=== PATIENT | female | born 2000 | race Caucasian/White ===

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

== ENCOUNTER 2023-05-15 02:31 | Emergency (ER) | payer OTHER, SELFPAY ==
--- OUTSIDE RECORDS SUMMARY | 2023-05-15 02:44 | XMS REPORT | Continuity of Care Document ---
Author Name Unknown Address [address] [facility] [place] [address] [facility] Address [address] 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 Role Phone (Brigido), [facility] Primary Care Phys ician PRINCE ASHLEY Attending Clinician Unavaila CRIS Costa Attending Clinician Unavailable [id number] Attending Clinician Unavailable DARLYN BARKSDALE Attending Clinician Unavailable Emily Ashraf Attending Clinician [phone] ALF BURNETTE Attending Clinician Unavaila NGUYEN Motley Attending Clinician Unavailable [id number] Attending Clinician Unavailable Prince Ashley MD Attending Clinician + [phone] TIA PHELAN Attending Clinician Unavaila Tia Cuevas Attending Clinician [phone] MICKIE AGUIRRE Attending Clinician UnavailSABA Vega Attending Clinician Unavaila Saba Latham Attending Clinician + [phone] Doctor Unassigned, [place] Attending Clinician U david Szymanski MD, [place] Attending Clinician [phone] Lucius DANGELO, Cyndee Attending Clinician Unavailable UNKNOWN, ATTENDING Attending Clinician Unavailab le Only, Web Test Attending Clinician Unavailable Unknown, Attending Attending Clinician Unavailab le 1, [facility] Attending Clinician Unavailable Diogenes Morgan MD Attending Clinician Payers Payer Name Policy Type Policy Number Effective Date Expirati on Date Source [employer] BENEFITS ANDALUSIA 2 [id number] 2022 00:00:00 MEDICAID PENDING PENDING 2021 00:00:00 Problems Condition Name Condition Details Condition Category Status Onset Date Resolution Date Last Treatment Date Treating Clinician Comments Source Acne Acne Disease Active 10-03 00:00: 00 [facility] No known active problems No known active problems Disease Miroslava Espinosa Allergies, Adverse Reactions, Alerts Allergy Name Allergy Type Status Severity Reaction(s) Onset Date Inactive Date Treating Clinician Comments Source NO KNOWN ALLERGIE S Drug Class Active [facility] Social History Social Habit Start Date Stop Date Quantity Comments Source Gender identity Mallory Espinosa - External Sexual orientation K femi Espinosa - External History of Social function 2023-03-02 00:00:00 2023-03-02 00:00:00 Miroslava Espinosa - External Alcohol intake 2023-03-02 00:00:00 2023-03-02 00:00:00 Ex-drinker (finding) Miroslava Espinosa - External Tobacco use and exposure 2014-10-03 00:00:00 2014-10-03 00:00:00 Smokeless tobacco non-user [facility] Sex Assigned At 2002 00:00:00 2000 00:00:00 Miroslava Espinosa - External Smoking Status Start Date Stop Date Source Never smoked tobacco Miroslava Espinosa - External Medications Ordered Medication Name Filled Medication Name Start Date Stop Date Current Medication? Ordering Clinician Indication Dosage Frequency Signature (SIG) Comments Components Source Valacyclovi r HCl (Valtrex) 1 g oral Tablet 03-02 00:00: 00 Yes [id number] 1000mg Take 1 tablet (1,000 mg total) by mouth 2 times daily. Miroslava king Pseudoeph-B romphen-DM 30-2-10 MG/5ML oral Syrup 06-03 00:00: 00 Yes [id number] 10mL Q.25D Take 10 mL by mouth 4 times daily as needed Miroslava king Dextrometho rphan-guaiF ENesin (Mucinex DM Maximum Strength) 60-1200 MG oral Tablet 12 Hour Sustained Release 06-03 00:00: 00 Yes [id number] 1{tbl} Q.5D Take 1 tablet by mouth 2 times daily as needed Miroslava king Pseudoeph-B romphen-DM 30-2-10 MG/5ML oral Syrup 06-03 00:00: 00 01-13 00:00 :00 No [id number] 10mL Q.25D Take 10 mL by mouth 4 times daily as needed Miroslava king Dextrometho rphan-guaiF ENesin (Mucinex DM Maximum Strength) 60-1200 MG oral Tablet 12 Hour Sustained Release 06-03 00:00: 00 01-13 00:00 :00 No [id number] 1{tbl} Q.5D Take 1 tablet by mouth 2 times daily as needed Miroslava king Metronidazo le (Flagyl) 500 MG oral Tablet 06-25 00:00: 00 Yes [id number] 500mg Take 1 tablet (500 mg total) by mouth in the morning and 1 tablet (500 mg total) in the evening. Miroslava king Fluconazole (Diflucan) 150 MG oral Tablet 06-25 00:00: 00 Yes [id number] 150mg Take 1 tablet (150 mg total) by mouth every 72 hours Miroslava king Metronidazo le (Flagyl) 500 MG oral Tablet 06-25 00:00: 00 01-13 00:00 :00 No [id number] 500mg Take 1 tablet (500 mg total) by mouth in the morning and 1 tablet (500 mg total) in the evening. Miroslava king Fluconazole (Diflucan) 150 MG oral Tablet 13 00:00: 00 01-13 00:00 :00 No [id number] 150mg Take 1 tablet (150 mg total) by mouth every 72 hours Miroslava king Nitrofurant oin Monohyd Macro (Macrobid) 100 MG oral Capsule 06-23 00:00: 00 Yes [id number] 100mg Take 1 capsule (100 mg total) by mouth in the morning and 1 capsule (100 mg total) in the evening. Miroslava Espinosa Nitrofurant oin Monohyd Macro (Macrobid) 100 MG oral Capsule 06-23 00:00: 00 Yes [id number] 100mg Take 1 capsule (100 mg total) by mouth in the morning and 1 capsule (100 mg total) in the evening. Miroslava king Nitrofurant oin Monohyd Macro (Macrobid) 100 MG oral Capsule 06-23 00:00: 00 01-13 00:00 :00 No [id number] 100mg Take 1 capsule (100 mg total) by mouth in the morning and 1 capsule (100 mg total) in the evening. Miroslava king No known medications 08-05 10:30: 13 No Univers it[facility] No known medications No Un bonnie ity [facility] No known medications No Un bonnie ity [facility] No known medications No Un bonnie ity [facility] No known medications No Un bonnie ity [facility] No known medications No Un bonnie ity [facility] No known medications No Un bonnie ity [facility] No known medications No Un bonnie ity [facility] No known medications No Un bonnie ity [facility] Immunizations Ordered Immunization Name Filled Immunization Name Date Status Comments Source Meningococcal B, OMV 2020-08-05 00:00:00 Completed [facility] Meningococcal B, OMV 2020-08-05 00:00:00 Completed [facility] Meningococcal B, OMV 2020-08-05 00:00:00 Completed [facility] Meningococcal B, OMV 2020-08-05 00:00:00 Completed [facility] Meningococcal Polysaccharide (groups A, C, Y and W-135) conjugate vaccine (MCV4P) 2019-01-03 00:00:00 Completed [facility] Meningococcal B, OMV 2019-01-03 00:00:00 Completed [facility] Meningococcal Polysaccharide (groups A, C, Y and W-135) conjugate vaccine (MCV4P) 2019-01-03 00:00:00 Completed [facility] Meningococcal B, OMV 2019-01-03 00:00:00 Completed [facility] Meningococcal Polysaccharide (groups A, C, Y and W-135) conjugate vaccine (MCV4P) 2019-01-03 00:00:00 Completed [facility] Meningococcal B, OMV 2019-01-03 00:00:00 Completed [facility] Meningococcal Polysaccharide (groups A, C, Y and W-135) conjugate vaccine (MCV4P) 2019-01-03 00:00:00 Completed [facility] Meningococcal B, OMV 2019-01-03 00:00:00 Completed [facility] Meningococcal Polysaccharide (groups A, C, Y and W-135) conjugate vaccine (MCV4P) 2019-01-03 00:00:00 Completed [facility] Meningococcal B, OMV 2019-01-03 00:00:00 Completed [facility] Meningococcal Polysaccharide (groups A, C, Y and W-135) conjugate vaccine (MCV4P) 2019-01-03 00:00:00 Completed [facility] Meningococcal B, OMV 2019-01-03 00:00:00 Completed [facility] Meningococcal Polysaccharide (groups A, C, Y and W-135) conjugate vaccine (MCV4P) 2019-01-03 00:00:00 Completed [facility] Meningococcal B, OMV 2019-01-03 00:00:00 Completed [facility] Meningococcal Polysaccharide (groups A, C, Y and W-135) conjugate vaccine (MCV4P) 2019-01-03 00:00:00 Completed [facility] Meningococcal B, OMV 2019-01-03 00:00:00 Completed [facility] Meningococcal Polysaccharide (groups A, C, Y and W-135) conjugate vaccine (MCV4P) 2019-01-03 00:00:00 Completed [facility] Meningococcal B, OMV 2019-01-03 00:00:00 Completed [facility] Meningococcal Polysaccharide (groups A, C, Y and W-135) conjugate vaccine (MCV4P) 2019-01-03 00:00:00 Completed [facility] Meningococcal B, OMV 2019-01-03 00:00:00 Completed [facility] Meningococcal Polysaccharide (groups A, C, Y and W-135) conjugate vaccine (MCV4P) 2014-10-03 00:00:00 Completed [facility] TDAP 2014-10-03 00:00:00 Completed [facility] Meningococcal Polysaccharide (groups A, C, Y and W-135) conjugate vaccine (MCV4P) 2014-10-03 00:00:00 Completed [facility] TDAP 2014-10-03 00:00:00 Completed [facility] Meningococcal Polysaccharide (groups A, C, Y and W-135) conjugate vaccine (MCV4P) 2014-10-03 00:00:00 Completed [facility] TDAP 2014-10-03 00:00:00 Completed [facility] Meningococcal Polysaccharide (groups A, C, Y and W-135) conjugate vaccine (MCV4P) 2014-10-03 00:00:00 Completed [facility] TDAP 2014-10-03 00:00:00 Completed [facility] Meningococcal Polysaccharide (groups A, C, Y and W-135) conjugate vaccine (MCV4P) 2014-10-03 00:00:00 Completed [facility] TDAP 2014-10-03 00:00:00 Completed [facility] Meningococcal Polysaccharide (groups A, C, Y and W-135) conjugate vaccine (MCV4P) 2014-10-03 00:00:00 Completed [facility] TDAP 2014-10-03 00:00:00 Completed [facility] Meningococcal Polysaccharide (groups A, C, Y and W-135) conjugate vaccine (MCV4P) 2014-10-03 00:00:00 Completed [facility] TDAP 2014-10-03 00:00:00 Completed [facility] Meningococcal Polysaccharide (groups A, C, Y and W-135) conjugate vaccine (MCV4P) 2014-10-03 00:00:00 Completed [facility] TDAP 2014-10-03 00:00:00 Completed [facility] Meningococcal Polysaccharide (groups A, C, Y and W-135) conjugate vaccine (MCV4P) 2014-10-03 00:00:00 Completed [facility] TDAP 2014-10-03 00:00:00 Completed [facility] Meningococcal Polysaccharide (groups A, C, Y and W-135) conjugate vaccine (MCV4P) 2014-10-03 00:00:00 Completed [facility] TDAP 2014-10-03 00:00:00 Completed [facility] Covid-19 Vaccine (Pfizer), Mrna-lnp, Eben Protein, Pf, 30mcg/0.3ml,IM Unknown Completed Miroslava Calixol d - External Influenza Virus Vaccine, Split, up to age 3 Unknown Completed Miroslava Louiseold - External Influenza Virus Vaccine, Split, up to age 3 Unknown [facility] Meningococcal Vaccine- Conjugate(Menactra) Unknown Completed Miroslava eybold - External Meningococcal Vaccine- Conjugate(Menactra) Unknown Completed Miroslava Tan eybold - External Bexsero (Meningococcal Group B) Unknown Completed [facility] - External Bexsero (Meningococcal Group B) Unknown Com[facility] Tdap- (Boostrix, Adacel) Unknown [facility] Cov[facility]-19 Vaccine (Pfizer), Mrna-lnp, Eben Protein, Pf, 30mcg/0.3ml,IM Unknown Completed Miroslava Calix d - External Influenza Virus Vaccine, Split, up to age 3 Unknown Completed Miroslava [facility] - External Influenza Virus Vaccine, Split, up to age 3 Unknown Com[facility] Meningococcal Vaccine- Conjugate(Menactra) Unknown Completed Miroslava S eybold - External Meningococcal Vaccine- Conjugate(Menactra) Unknown Completed Miroslava S eybold - External Bexsero (Meningococcal Group B) Unknown Completed Miroslava Seybold - External Bexsero (Meningococcal Group B) Unknown Completed Miroslava [facility] - External Tdap- (Boostrix, Adacel) Unknown [facility] Vital Signs Vital Name Observation Time Observation Value Comments S ource Systolic blood pressure 2023-03-02 15:21:00 102 mm[Hg] Miroslava Seybo ld - External Diastolic blood pressure 2023-03-02 15:21:00 56 mm[Hg] Miroslava Seybo ld - External Heart rate 2023-03-02 15:21:00 70 /min Kelse y Seybold - External Body temperature 2023-03-02 15:21:00 36.83 Mary Miroslava Seybold - External Respiratory rate 2023-03-02 15:21:00 20 /min Miroslava Seybold - External Body height 2023-03-02 15:21:00 165.1 cm Mallory ey Seybold - External Body weight 2023-03-02 15:21:00 52.164 kg Mallory ey Seybold - External BMI 2023-03-02 15:21:00 19.14 kg/m2 Mallory ey Seybold - External Systolic blood pressure 2021-06-23 18:40:00 102 mm[Hg] Miroslava Seybo ld Diastolic blood pressure 2021-06-23 18:40:00 60 mm[Hg] Miroslava Seybo ld Heart rate 2021-06-23 18:40:00 80 /min Kelse y Seybold Body temperature 2021-06-23 18:40:00 36.61 Mary Miroslava Seybold Respiratory rate 2021-06-23 18:40:00 20 /min Miroslava Seybold Body height 2021-06-23 18:40:00 162.6 cm Mallory ey Seybold Body weight 2021-06-23 18:40:00 49.079 kg Mallory ey Seybold BMI 2021-06-23 18:40:00 18.57 kg/m2 Mallory ey Seybold Systolic blood pressure 2021-03-18 22:53:00 126 mm[Hg] [facility] Diastolic blood pressure 2021-03-18 22:53:00 50 mm[Hg] [facility] Heart rate 2021-03-18 22:53:00 66 /min [facility] Body temperature 2021-03-18 22:53:00 36.61 Mary [facility] Respiratory rate 2021-03-18 22:53:00 18 /min [facility] Body weight 2021-03-18 22:53:00 47.628 kg [facility] Oxygen saturation in Arterial blood by Pulse oximetry 2021-03-18 22:53:00 99 /min [facility] Systolic blood pressure 2020-08-05 15:23:00 109 mm[Hg] [facility] Diastolic blood pressure 2020-08-05 15:23:00 67 mm[Hg] [facility] Heart rate 2020-08-05 15:23:00 79 /min [facility] Body temperature 2020-08-05 15:23:00 37.28 Mary [facility] Respiratory rate 2020-08-05 15:23:00 17 /min [facility] Body height 2020-08-05 15:23:00 163.2 cm [facility] Body weight 2020-08-05 15:23:00 47.741 kg [facility] BMI 2020-08-05 15:23:00 17.92 kg/m2 [facility] Oxygen saturation in Arterial blood by Pulse oximetry 2020-08-05 15:23:00 98 /min [facility] Procedures Procedure Date / Time Performed Performing Clinician Source URINE TEST-BACK OFFICE TEST 2021-06-23 19:23:00 Prince Ashley CONSENT/REFUSAL FOR DIAGNOSIS AND TREATMENT 2021-03-18 22:55:28 Doctor Unassigned, [place] [facility] NOTICE OF PRIVACY PRACTICES 2021-03-18 22:55:12 Doctor Unassigned, [place] [facility] MENINGOCOCCAL B VACCINE, OMV, 2 DOSE, IM 2020-08-05 15:28:49 Saba Sánchez [facility] CONSENT/REFUSAL FOR DIAGNOSIS AND TREATMENT 2020-08-05 15:15:03 Doctor Unassigned, [place] [facility] AUTHORIZATION FOR RELEASE OF PHI 2019-08-19 05:01:00 Doctor Unassigned, [place] [facility] Encounters Start Date/Time End Date/Time Encounter Type Admission Type Attending Clinicians Care Facility Care Department Encounter ID Source 2023-04-03 15:15:00 2023-04-03 15:15:00 Outpatient PRINCE ASHLEY MIROSLAVA AGUIRRE [id number] [facility] 2023-03-09 14:45:00 2023-03-09 14:45:00 Outpatient CRIS THOMAS MRIOSLAVA AGUIRRE [id number] [facility] 2023-03-02 10:05:00 2023-03-02 10:05:00 Outpatient LAB59 MIROSLAVA AGUIRRE [id number] Miros[facility]ava [facility] 2023-03-02 09:30:00 2023-03-02 09:30:00 Outpatient PRINCE ASHLEY MIROSLAVA AGUIRRE [id number] [facility] 2023-01-13 10:45:00 2023-01-13 10:45:00 Outpatient DARLYN BARKSDALE MIROSLAVA AGUIRRE [id number] Mi[facility] 2023-01-13 00:00:00 2023-01-13 00:00:00 Outpatient APOLONIA DARLYN MIROSLAVA AGUIRRE [id number] [facility] 2022-06-24 00:00:00 2022-06-24 00:00:00 Telephone [facility] [id number] [id number] [id number] [id number] [facility] 2022-06-03 14:45:00 2022-06-03 14:45:00 Outpatient ALF BURNETTE [id number] [facility] 2021-08-20 11:15:00 2021-08-20 11:15:00 Outpatient NGUYEN NIETO [id number] [facility] 2021-07-16 00:00:00 2021-07-16 00:00:00 Outpatient PRINCE ASHLEY [facility]LAVA AGUIR[facility] [id number] [facility] 2021-06-23 14:30:00 2021-06-23 14:30:00 Outpatient [id number]-[id number] MIROSLAVA AGUIRRE [id number] [facility] 2021-06-23 13:45:00 2021-06-23 14:15:00 Office Visit Prince Ashley [id number] [id number] Miroslava Espinosa 2021-03-18 16:55:00 2021-03-18 17:45:00 Emergency X TIA PHELAN [facility] ERT [id number] [facility] 2021-03-18 16:55:00 2021-03-18 17:45:00 Emergency Tia Phelan [facility] [id number] 350.1.13.10 4.2.7.2.686 [id number] [facility] 2020-09-19 10:40:00 2020-09-19 10:40:00 Outpatient R MICKIE AGUIRRE [facility] [id number] [facility] 2020-08-05 10:20:00 2020-08-05 10:47:16 Outpatient R MIGUEL SABA [facility] [id number] [facility] 2020-08-05 10:15:32 2020-08-05 10:47:16 Office Visit Sánchez Saba [facility] [id number] 350.1.13.10 4.2.7.2.686 [id number] [facility] 2020-08-05 00:00:00 2020-08-05 00:00:00 Orders Only Doctor Unassigned, [place] [facility] [id number] 350.1.13.10 4.2.7.2.686 [id number] [facility] 2020-08-03 00:00:00 2020-08-03 00:00:00 Telephone Poncho Szymanski [facility] [id number] 350.1.13.10 4.2.7.2.686 [id number] [facility] 2019-08-26 00:00:00 2019-08-26 00:00:00 Telephone Lucius [facility] [id number] 350.1.13.10 4.2.7.2.686 [id number] 2019-08-26 00:00:00 2019-08-26 00:00:00 Telephone Lucius [facility] [id number] 350.1.13.10 4.2.7.2.686 [id number] [facility] 2019-08-21 08:15:00 2019-08-21 08:15:00 Outpatient R UNKNOWN, ATTENDING [facility] [id number] [facility] 2019-08-21 07:55:52 2019-08-21 08:10:52 Laboratory Only Only, Web Test [facility] [id number] 350.1.13.10 4.2.7.2.686 [id number] 2019-08-21 07:55:52 2019-08-21 08:10:52 Laboratory Only Only, Web Test Unknown, Attending [facility] [id number] 350.1.13.10 4.2.7.2.686 [id number] [facility] 2019-08-19 00:00:00 2019-08-19 00:00:00 Orders Only Doctor Unassigned, [place] [facility] 1.2.840.114 350.1.13.10 4.2.7.2.686 [id number] [facility] 2019-08-19 00:00:00 2019-08-19 00:00:00 Orders Only Doctor Unassigned, [place] [facility] 1.2.840.114 350.1.13.10 4.2.7.2.686 [id number] 2019-08-17 08:34:09 2019-08-17 08:49:09 Senior Ssis Developer Visit 1, Adc Diogenes Rivera [facility] [id number] 350.1.13.10 4.2.7.2.686 [id number] [facility] 2019-08-17 08:34:09 2019-08-17 08:49:09 Senior Ssis Developer Visit 1, Adc Lab [facility] [id number] 350.1.13.10 4.2.7.2.686 [id number] 2019-08-17 08:15:00 2019-08-17 08:15:00 Outpatient R [facility] [id number] [facility] Results Test Description Test Time Test Comments Results Result Co mments Source COMPREHENSIVE METABOLIC [id number] 07:00:41* Test Item Value Reference Range Interpretation Comme nts GLUCOSE (test code = 2217) 74 MG/DL 70-99 BUN (test code = 2208) 16 MG/DL 6-20 CREATININE (test code = 2214) 1.00 MG/DL 0.50-1.10 eGFR (2020 CKD-EPI) (test code = 63381) 83 ML/MIN/1.73 >60 CALC BUN/CREAT (test code = 2235) 16 RATIO 6-28 SODIUM (test code = 2231) 136 MEQ/L 133-146 POTASSIUM (test code = 2228) 4.0 MEQ/L 3.5-5.4 CHLORIDE (test code = 2215) 96 MEQ/L 95-107 CARBON DIOXIDE (test code = 2206) 25 MEQ/L 19-31 CALCIUM (test code = 2209) 10.3 MG/DL 8.5-10.5 PROTEIN, TOTAL (test code = 2229) 8.0 G/DL 6.1-8.3 ALBUMIN (test code = 2201) 5.1 G/DL 3.5-5.2 CALC GLOBULIN (test code = 2240) 2.9 G/DL 2.1-3.7 CALC A/G RATIO (test code = 2234) 1.8 RATIO 1.0-2.6 BILIRUBIN, TOTAL (test code = 2207) 1.2 MG/DL See_Comment [Automated me ssage] The system which generated this result transmitted reference range: <=1.2. The reference range was not used to interpret this result as normal/abnormal. ALKALINE PHOSPHATASE (test code = 2204) 59 U/L 41-120 AST (test code = 2218) 21 U/L 9-40 ALT (test code = 2219) 16 U/L 5-40 UNLESS OTHERWISE INDICATED, ALL TESTING PERFORMED [facility] [employer] [address] [place] [id number] SPECIAL EDUCATION AIDE: IVANIA MISHRA M.D. [place] NUMBER [id number] [facility] [place]. [id number] HEMOGLOBIN [id number] 06:38:41* Test Item Value Reference Range Interpretation Comme nts HEMOGLOBIN A1c (test code = 16667) 4.8 % 4.2-5.6 CBC W/AUTO DIFF WITH [id number] 05:14:58* Test Item Value Reference Range Interpretation Comme nts WBC (test code = 1001) 9.3 K/UL 3.5-11.0 RBC (test code = 1002) 5.11 M/UL 3.80-5.40 HEMOGLOBIN (test code = 1003) 15.7 G/DL 11.5-15.5 H HEMATOCRIT (test code = 1004) 44.0 % 34.0-45.0 MCV (test code = 1005) 86.1 fL 80.0-99.0 MCH (test code = 1006) 30.7 PG 25.0-33.0 MCHC (test code = 1007) 35.7 G/DL 31.0-36.0 RDW (test code = 1038) 11.7 % 11.5-15.0 NEUTROPHILS (test code = 1008) 76.7 % LYMPHOCYTES (test code = 1010) 16.6 % MONOCYTES (test code = 1011) 5.3 % EOSINOPHILS (test code = 1012) 0.8 % BASOPHILS (test code = 1013) 0.4 % IMMATURE GRANULOCYTES (test code = 1036) 0.2 % NUCLEATED RBCS (test code = 1065) 0.0 /100 WBC'S See_Comment [Automated messa ge] The system which generated this result transmitted reference range: 0.0. The reference range was not used to interpret this result as normal/abnormal. PLATELET COUNT (test code = 1015) 281 K/UL 130-400 ABSOLUTE NEUTROPHILS (test code = 1066) 7.14 K/UL 1.50-7.50 ABSOLUTE LYMPHOCYTES (test code = 1067) 1.54 K/UL 1.00-4.00 ABSOLUTE MONOCYTES (test code = 1068) 0.49 K/UL 0.20-1.00 ABSOLUTE EOSINOPHILS (test code = 1040) 0.07 K/UL 0.00-0.50 ABSOLUTE BASOPHILS (test code = 1069) 0.04 K/UL 0.00-0.20 ABS IMMATURE GRANULOCYTES (test code = 1020) 0.02 K/UL 0.00-0.10 ABS NUCLEATED RBCS (test code = 54324) 0.02 K/UL 0.00-0.11 URINE TEST-BACK OFFICE [id number] 19:23:00* Test Item Value Reference Range Interpretation Comme nts TEST RESULT (test code = 647558) Neg Neg. - Pos. Internal Positive Control (t est code = 3223) Positive Miroslava Espinosa Notes Date/Time Note Provider Source 2023-03-02 09:18:05 [id number] T09:18:05 Chief ComplaintPatient presents withVaginal ProblemCarol [place]IDNA [place]res II [id number] [id number] [id number] for patient [id number] NoteLNNARRATIVEFormatted C-CDA narrative Jewel [id number] [facility] [id number] [id number] [facility]"
[2023-05-15] MEDS ORDERED: FAMOTIDINE 20 MG/2 ML VIAL IV ONE (03:03)
[2023-05-15] MEDS ORDERED: ONDANSETRON 4 MG/2 ML VIAL ONE (03:03)
[2023-05-15] MEDS ORDERED: NA CHLORIDE 0.9% 1,000 ML ONE ×2 (03:04→05:18)
[2023-05-15 03:42] LABS: Absolute Lymphocytes (CBC) 1.2 K/uL (0.7-4.9); Absolute Monocytes 0.3 K/uL (0.1-1.3); Absolute Neutrophil 9.5 K/uL (1.8-8.0); Basophils % 0.2 % (0-1.3); Eosinophils % 0.3 % (0-4.4); Hematocrit 42.6 % (36.0-45.0); Hemoglobin 14.9 g/dL (12.0-15.0); Lymphocytes % 10.9 % (15.3-44.8); MCH 30.4 pg (27.0-35.0); MCHC 35.1 g/dL (32.0-36.0); MCV 86.7 fL (80-100); Monocytes % 2.6 % (3.3-12.3); Platelets 255 thou/uL (152-406); RBC Red Blood Cell Count 4.91 M/uL (3.86-4.86); Red Cell Distribution Width 12.5 % (12.1-15.2)
[2023-05-15 03:50] LABS: PT Prothrombin Time 12.6 SECONDS (9.5-12.5); PTT, Activated Partial Thromb 22.5 SECONDS (24.3-36.9); Protime INR 1.15
[2023-05-15 04:15] LABS: ALT/SGPT 21 U/L (13-56); AST/SGOT 21 U/L (15-37); Albumin 4.3 g/dL (3.4-5.0); Albumin/Globulin Ratio 1.1 (1.1-1.8); Alkaline Phosphatase 54 U/L (45-117); Anion Gap 13.3 mEq/L (5.0-15.0); BUN Blood Urea Nitrogen 25 mg/dL (7-18); Bicarbonate 22 mEq/L (21-32); Bilirubin Direct 0.2 mg/dL (0-0.2); Bilirubin Indirect, Calculated 0.7 mg/dL (0.2-0.8); Bilirubin Total 0.9 mg/dL (0.2-1.0); Glomerular Filtration Rate 79 ml/min (=/>90); Glucose Level 111 mg/dL (74-106); Potassium 3.3 mEq/L (3.5-5.1); Protein, Total 8.3 g/dL (6.4-8.2); Sodium Level 136 mEq/L (136-145)
[2023-05-15 05:03] LABS: Band Neutrophils 2 % (0-1); Blood Morphology Comment NOT SEEN (NOT SEEN); Differential Total Cells Count 100; Lymphocytes 9 % (15-42); Monocytes 1 % (0-10); Platelet Estimate ADEQ; Reactive Lymphocytes 1 %; Segmented Neutrophils 86 % (40-80)
[2023-05-15] MEDS ORDERED: PROMETHAZINE INJ 25 MG/ML AMP ONE (05:18)
--- NOTE | 2023-05-15 05:29 | EDPHYS ---
Physician Documentation [facility] Name: Dede Kulkarni Age: 22 yrs Sex: Female : 2000 Arrival Date: 05/15/2023 Time: 02:31 Bed 20 Private MD: ED Physician Cliff Rebolledo HPI: 05/14 03:10 This 22 yrs old Female presents to ER via Ambulatory with complaints of Nausea/Vomiting.rn 03:10 The patient presents to the emergency department with nausea, vomiting. Onset: The rn symptoms/episode began/occurred just prior to arrival. Possible causes: Too much pain medication. The symptoms are aggravated by nothing. The symptoms are alleviated by nothing. Severity of symptoms: At their worst the symptoms were moderate in the emergency department the symptoms are unchanged. The patient has not experienced similar symptoms in the past. Patient reports took 7 Tylenol No. 3, 300-30 mg, was not an attempt to harm herself or commit suicide. Denies suicidal ideations. Took him approximately 630 to 7:30 PM last night. Went to [facility] and told her that she would be better served here so came here. Reports nausea and vomiting. No focal abdominal pain. [place] fine prior to taking the pills.. Historical: - Allergies: 02:48 No Known Allergies; rv - Home Meds: 02:48 None [Active]; rv - PMHx: 02:48 None; rv - PSHx: 02:48 None; rv - Immunization history:: Adult Immunizations up to date. - Social history:: Smoking status: unknown. - Family history:: not pertinent. - Hospitalizations: : No recent hospitalization is reported. ROS: 03:10 Constitutional: Negative for fever, chills, and weight loss, Eyes: Negative for injury, rn pain, redness, and discharge, Neck: Negative for injury, pain, and swelling, Cardiovascular: Negative for chest pain, palpitations, and edema, Respiratory: Negative for shortness of breath, cough, wheezing, and pleuritic chest pain, Abdomen/GI: Positive for nausea and vomiting Back: Negative for injury and pain, MS/Extremity: Negative for injury and deformity, Skin: Negative for injury, rash, and discoloration, Neuro: Negative for headache, weakness, numbness, tingling, and seizure, Psych: Negative for depression, anxiety, suicide ideation, homicidal ideation, and hallucinations, Exam: 03:10 Constitutional: This is a well developed, well nourished patient who is awake, alert, rn and in no acute distress. Head/Face: Normocephalic, atraumatic. Cardiovascular: Regular rate and rhythm. No pulse deficits. Respiratory: No increased work of breathing, no retractions or nasal flaring. Abdomen/GI: Soft, non-tender MS/ Extremity: Pulses equal, no cyanosis. Neuro: Awake and alert, GCS 15 Vital Signs: 02:46 BP 112 / 77; Pulse 72; Resp 17; Temp 98; Pulse Ox 100% ; Weight 52.16 kg; Height 5 ft. rv 4 in. ; 03:00 BP 92 / 52; Pulse 67; Resp 16; Pulse Ox 100% on R/A; rv 04:00 BP 93 / 46; Pulse 66; Resp 17; Pulse Ox 98% on R/A; rv 05:00 BP 103 / 59; Pulse 72; Resp 16; Pulse Ox 99% on R/A; rv 06:27 BP 103 / 58; Pulse 81; Resp 17; Temp 98; Pulse Ox 99% on R/A; rv 02:46 Body Mass Index 19.74 (52.16 kg, 162.56 cm) rv [place] Coma Score: 05:04 Eye Response: spontaneous(4). Motor Response: obeys commands(6). Verbal Response: rv oriented(5). Total: 15. 06:27 Eye Response: spontaneous(4). Motor Response: obeys commands(6). Verbal Response: rv oriented(5). Total: 15. MDM: 02:45 Patient medically screened. rn 03:58 ED course: Patient asked by multiple people and denied to everybody suicidal ideation rn or attempt. Patient states was having a bad day yesterday and took extra pain medication to calm down, not to harm herself or commit suicide.. 04:29 ED course: Acetaminophen level nontoxic.. rn 05:14 ED course: Reevaluated patient due to elevated WBC. Patient states was totally fine rn prior to taking pills. No recent illness. Repeat abdominal exam shows benign abdomen without focal tenderness. Patient feels much better, still little nauseated. Will give Phenergan and more fluids. If patient is able to tolerate p.o. will discharge home with return precautions.. 05:28 Differential diagnosis: Nonspecific abd pain, gastritis, Accidental overdose, airborne and air delivery specialist side effect. Data reviewed: vital signs, nurses notes, lab test result(s), and as a result, I will discharge patient. Counseling: I had a detailed discussion with the patient and/or guardian regarding the historical points, exam findings, and any diagnostic results supporting the discharge/admit diagnosis, lab results, the need for outpatient follow up, to return to the emergency department if symptoms worsen or persist or if there are any questions or concerns that arise at home. Special discussion: I discussed with the patient/guardian in detail that at this point there is no indication for admission to the hospital. It is understood, however, that if the symptoms persist or worsen the patient needs to return immediately for re-evaluation. ED course: Patient also states smoked marijuana prior to coming in.. 05/14 02:57 Order name: Acetaminophen; Complete Time: 04:29 rn 05/14 02:57 Order name: Basic Metabolic Panel; Complete Time: 04:29 rn 05/14 02:57 Order name: CBC with Diff; Complete Time: 05:05 rn 05/14 02:57 Order name: ETOH Level; Complete Time: 04:29 rn 05/14 02:57 Order name: Hepatic Function; Complete Time: 04:29 rn 05/14 02:57 Order name: PT-INR; Complete Time: 04:29 rn 05/14 02:57 Order name: Ptt, Activated; Complete Time: 04:29 rn 05/14 02:57 Order name: Salicylate; Complete Time: 04:29 rn 05/14 03:46 Order name: Manual Differential; Complete Time: 05:05 EDMS 05/14 02:57 Order name: EKG; Complete Time: 02:57 rn 05/14 02:57 Order name: EKG - Nurse/Tech; Complete Time: 03:18 rn 05/14 02:57 Order name: IV Saline Lock; Complete Time: 03:03 rn 05/14 02:57 Order name: Labs collected and sent; Complete Time: 03:03 rn 05/14 02:57 Order name: Suicide Screening ([place]); Complete Time: 03:03 rn 05/14 05:05 Order name: PO challenge; Complete Time: 05:27 rn Administered Medications: 03:09 Drug: NS 0.9% IV 1000 ml IV at 1000 ml once Route: IV; Rate: 1000 ml; Site: left rv antecubital; 06:28 Follow up: IV Status: Completed infusion; IV Intake: 1000ml rv 03:09 Drug: Ondansetron IVP 4 mg IVP once; over 2 minutes Route: IVP; Site: left antecubital; rv 06:28 Follow up: Response: No adverse reaction; Marked relief of symptoms rv 03:09 Drug: Famotidine IVP 20 mg IVP once; dilute with 10 mL 0.9% NaCl; give over 2 minutes rv Route: IVP; Site: left antecubital; 06:28 Follow up: Response: No adverse reaction; Marked relief of symptoms rv 05:27 Drug: NS 0.9% IV 1000 ml IV at 1000 ml once Route: IV; Rate: 1000 ml; Site: left rv antecubital; 06:28 Follow up: IV Status: Completed infusion; IV Intake: 1000ml rv 05:27 Drug: Promethazine IVP 6.25 mg IVP once Route: IVP; Site: left antecubital; rv 06:28 Follow up: Response: No adverse reaction; Marked relief of symptoms rv Disposition Summary: 05/15/23 05:29 Discharge Ordered Notes: Location: Home rn Problem: new rn Symptoms: have improved rn Condition: Stable rn Diagnosis - Nausea with vomiting, unspecified rn Followup: rn - With: Private Physician - When: As needed - Reason: Recheck today's complaints, Re-evaluation by your physician Discharge Instructions: - Discharge Summary Sheet rn - Nausea and Vomiting, Adult rn Forms: - Medication Reconciliation Form rn - Thank You Letter 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 EDMS EDMS 02:58 02:57 BASIC METABOLIC PANEL+C.LAB.BRZ ordered. EDMS EDMS 02:58 02:57 CBC+H.LAB.BRZ ordered. EDMS EDMS 02:58 02:57 ETHANOL+C.LAB.BRZ ordered. EDMS EDMS 02:58 02:57 HEPATIC FUNCTION+C.LAB.BRZ ordered. EDMS EDMS 02:58 02:57 PROTIME (+INR)+COAG.LAB.BRZ ordered. EDMS EDMS 02:58 02:57 Test, Urine+UC.LAB.BRZ ordered. EDMS EDMS 02:58 02:57 PTT, ACTIVATED+COAG.LAB.BRZ ordered. EDMS EDMS 02:58 02:57 SALICYLATE+C.LAB.BRZ ordered. EDMS EDMS 02:58 02:57 Urinalysis+U.LAB.BRZ ordered. EDMS EDMS 02:58 02:57 URINE DRUG SCREEN+UC.LAB.BRZ ordered. EDMS EDMS
--- NOTE | 2023-05-15 05:29 | ER ---
Nurse's Notes [facility] Name: Dede Kulkarni Age: 22 yrs Sex: Female : 2000 Arrival Date: 05/15/2023 Time: 02:31 Bed 20 Private MD: Diagnosis: Nausea with vomiting, unspecified Presentation: 05/14 02:46 Chief complaint: Patient states: PATIENT TOOK 7 TABLETS OF TYLENOL #3 BETWEEN [id number] rv TODAY AFTER HEARING SOME BAD NEWS. COMPLAINING OF NAUSEA AND VOMITING. DENIES ABD PAIN. DENIES SI/HI. Coronavirus screen: At this time, the client does not indicate any symptoms associated with coronavirus-19. Ebola Screen: No symptoms or risks identified at this time. Initial Sepsis Screen: Does the patient meet any 2 criteria? No. Patient's initial sepsis screen is negative. Does the patient have a suspected source of infection? No. Patient's initial sepsis screen is negative. Risk Assessment: Do you want to hurt yourself or someone else? Patient reports no desire to harm self or others. Onset of symptoms was May 15, 2023. 02:46 Method Of Arrival: Ambulatory rv 02:46 Acuity: CASEY 2 rv Triage Assessment: 02:48 General: Appears uncomfortable, Behavior is cooperative. Pain: Denies pain. Neuro: rv Level of Consciousness is awake, alert, obeys commands, Oriented to person, place, time, situation. Cardiovascular: Capillary refill < 3 seconds Patient's skin is warm and dry. Respiratory: Airway is patent Respiratory effort is even, unlabored. GI: Reports nausea, vomiting. Derm: Skin is intact. Historical: - Allergies: 02:48 No Known Allergies; rv - Home Meds: 02:48 None [Active]; rv - PMHx: 02:48 None; rv - PSHx: 02:48 None; rv - Immunization history:: Adult Immunizations up to date. - Social history:: Smoking status: unknown. - Family history:: not pertinent. - Hospitalizations: : No recent hospitalization is reported. Screenin:49 [facility] ED Fall Risk Assessment (Adult) History of falling in the last 3 months, rv including since admission No falls in past 3 months (0 pts) Score/Fall Risk Level 0 - 2 = Low Risk Oriented to surroundings, Maintained a safe environment, Educated pt \T\ family on fall prevention, incl call for assistance when getting out of bed, Assessed \T\ reinforced patient's understanding of fall precautions. Abuse screen: Denies threats or abuse. Denies injuries from another. Nutritional screening: No deficits noted. Tuberculosis screening: No symptoms or risk factors identified. Assessment: 03:18 Reassessment: POISON CONTROL: IF TYLENOL LEVEL IS GREATER THAN 60, RECOMMEND rv ACETYLCYSTEINE, OTHERWISE, SYMPTOMATIC/SUPPORTIVE CARE. # [id number]. Vital Signs: 02:46 BP 112 / 77; Pulse 72; Resp 17; Temp 98; Pulse Ox 100% ; Weight 52.16 kg; Height 5 ft. rv 4 in. ; 03:00 BP 92 / 52; Pulse 67; Resp 16; Pulse Ox 100% on R/A; rv 04:00 BP 93 / 46; Pulse 66; Resp 17; Pulse Ox 98% on R/A; rv 05:00 BP 103 / 59; Pulse 72; Resp 16; Pulse Ox 99% on R/A; rv 06:27 BP 103 / 58; Pulse 81; Resp 17; Temp 98; Pulse Ox 99% on R/A; rv 02:46 Body Mass Index 19.74 (52.16 kg, 162.56 cm) rv [place]anth Coma Score: 05:04 Eye Response: spontaneous(4). Motor Response: obeys commands(6). Verbal Response: rv oriented(5). Total: 15. 06:27 Eye Response: spontaneous(4). Motor Response: obeys commands(6). Verbal Response: rv oriented(5). Total: 15. ED Course: 02:36 Patient arrived in ED. gm2 02:45 Cliff Rebolledo MD is Attending Physician. rn 02:46 Dante Reilly RN is Primary Nurse. rv 02:47 EKG done, by ED staff, reviewed by Cliff Rebolledo MD. pf1 02:48 Triage completed. rv 02:48 Arm band placed on right wrist. rv 02:49 Patient has correct armband on for positive identification. Client placed on continuous rv cardiac and pulse oximetry monitoring. NIBP monitoring applied. color television console monitor on. 02:49 No provider procedures requiring assistance completed. rv 03:09 Acetaminophen Sent. rv 03:09 Basic Metabolic Panel Sent. rv 03:10 CBC with Diff Sent. rv 03:10 ETOH Level Sent. rv 03:10 Hepatic Function Sent. rv 03:10 PT-INR Sent. rv 03:10 Ptt, Activated Sent. rv 03:10 Salicylate Sent. rv 03:10 Initial lab(s) drawn, by me, sent to lab. Inserted saline lock: 22 gauge in left rv antecubital area, using aseptic technique. Blood collected. 06:28 IV discontinued, intact, bleeding controlled, No redness/swelling at site. Pressure rv dressing applied. Administered Medications: 03:09 Drug: NS 0.9% IV 1000 ml IV at 1000 ml once Route: IV; Rate: 1000 ml; Site: left rv antecubital; 06:28 Follow up: IV Status: Completed infusion; IV Intake: 1000ml rv 03:09 Drug: Ondansetron IVP 4 mg IVP once; over 2 minutes Route: IVP; Site: left antecubital; rv 06:28 Follow up: Response: No adverse reaction; Marked relief of symptoms rv 03:09 Drug: Famotidine IVP 20 mg IVP once; dilute with 10 mL 0.9% NaCl; give over 2 minutes rv Route: IVP; Site: left antecubital; 06:28 Follow up: Response: No adverse reaction; Marked relief of symptoms rv 05:27 Drug: NS 0.9% IV 1000 ml IV at 1000 ml once Route: IV; Rate: 1000 ml; Site: left rv antecubital; 06:28 Follow up: IV Status: Completed infusion; IV Intake: 1000ml rv 05:27 Drug: Promethazine IVP 6.25 mg IVP once Route: IVP; Site: left antecubital; rv 06:28 Follow up: Response: No adverse reaction; Marked relief of symptoms rv Medication: 02:49 VIS not applicable for this client. rv Intake: 06:28 IV: 1000ml; Total: 1000ml. rv 06:28 IV: 1000ml; Total: 2000ml. rv Outcome: :29 Discharge ordered by . rn 06:28 Discharged to home ambulatory, rv 06:28 Condition: good :28 Discharge instructions given to patient, Instructed on discharge instructions, follow up and referral plans. medication usage, Demonstrated understanding of instructions, follow-up care, medications, Prescriptions given X 1, 06:29 Patient left the ED. rv Signatures: Cliff Rebolledo MD MD rn Vicente, Ronaldo, RN RN rv Finley, Pamala, RN RN pf1 Maria E Tello gm2
[2023-05-15 12:59] VITALS: TEMP 98; O2SAT 99
--- NOTE | 2023-05-15 13:37 | EKG ---
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
[2023-05-15 13:42] VITALS: BP 103/58
== END 2023-05-15 06:29 | disposition home or self-care (01) ==
LOC: ER 02:31
DX: R11.2 Nausea with vomiting, unspecified (principal)
CPT/HCPCS: 36415; 80048; 80076; 80143; 80179; 82077; 85025; 85610; 85730; 93005; 96361; 96374; 96375; 99285; J2405; J2550; J7030

== ENCOUNTER 2023-07-24 21:07 | Emergency (ER) | payer SELFPAY ==
--- OUTSIDE RECORDS SUMMARY | 2023-07-24 21:12 | XMS REPORT | Continuity of Care Document ---
Author Name Unknown Address [address] [facility] [address] [place] [address] [facility] [address] [facility] 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 Phone (Brigido), [facility] Primary Care Phys ician PRINCE ASHLEY Attending Clinician Unavaila CRIS Costa Attending Clinician Unavailable [id number] Attending Clinician Unavailable DARLYN BARKSDALE Attending Clinician Unavailable Emily Ashraf Attending Clinician [phone] ALF BURNETTE Attending Clinician Unavaila DANAE Rowell-EDELMIRA Attending Clinician Shilpa NGUYEN Longo Attending Clinician Unavailable [id number] Attending Clinician Unavailable Prince Ashley MD Attending Clinician [phone] TIA PHELAN Attending Clinician UnavailTia Olivera Attending Clinician MICKIE AGUIRRE Attending Clinician UnavailSABA Vega Attending Clinician Unavaila Saba Latham Attending Clinician [phone] Doctor Unassigned, [place] Attending Clinician Jaime Szymanski MD, Poncho Attending Clinician [phone] Lucius DANGELO, Cyndee Attending Clinician Unavailable UNKNOWN, ATTENDING Attending Clinician Unavailab le Only, Web Test Attending Clinician Unavailable Unknown, Attending Attending Clinician Unavailab le 1, [facility] Attending Clinician Unavailable Eddie VELASQUEZ, Diogenes Attending Clinician Payers Payer Name Policy Type Policy Number Effective Date Expirati on Date Source [id number] [employer] [id number] 2022 00:00:00 MEDICAID PENDING PENDING 2021 00:00:00 Problems Condition Name Condition Details Condition Category Status Onset Date Resolution Date Last Treatment Date Treating Clinician Comments Source Acne Acne Disease Active 10-03 00:00: 00 [facility] No known active problems No known active problems Disease Miroslava Espinosa Allergies, Adverse Reactions, Alerts Allergy Name Allergy Type Status Severity Reaction(s) Onset Date Inactive Date Treating Clinician Comments Source NO KNOWN ALLERGIE S Drug Class Active [facility] Social History Social Habit Start Date Stop Date Quantity Comments Source Gender identity Mallory Espinosa - External Sexual orientation K femi Espinosa - External History of Social function 2023-03-02 00:00:00 2023-03-02 00:00:00 Miroslava Espinosa - External Alcohol intake 2023-03-02 00:00:00 2023-03-02 00:00:00 Ex-drinker (finding) Miroslava Espinosa - External Tobacco use and exposure 2014-10-03 00:00:00 2014-10-03 00:00:00 Smokeless tobacco non-user [facility] Sex Assigned At 2000 00:00:00 2000 00:00:00 Miroslava Espinosa - External Smoking Status Start Date Stop Date Source Never smoked tobacco Miroslava Espinosa - External Medications Ordered Medication Name Filled Medication Name Start Date Stop Date Current Medication? Ordering Clinician Indication Dosage Frequency Signature (SIG) Comments Components Source Valacyclovi r HCl (Valtrex) 1 g oral Tablet 1-18 00:00: 00 Yes [id number] 1000mg Take 1 tablet (1,000 mg total) by mouth 2 times daily. Miroslava king Pseudoeph-B romphen-DM 30-2-10 MG/5ML oral Syrup 06-03 00:00: 00 Yes [id number] 10mL Q.25D Take 10 mL by mouth 4 times daily as needed Miroslava king Dextrometho rphan-guaiF ENesin (Mucinex DM Maximum Strength) 60-1200 MG oral Tablet 12 Hour Sustained Release 06-03 00:00: 00 Yes [id number] 1{tbl} Q.5D Take 1 tablet by mouth 2 times daily as needed Miroslava king Metronidazo le (Flagyl) 500 MG oral Tablet - 00:00: 00 Yes [id number] 500mg Take 1 tablet (500 mg total) by mouth in the morning and 1 tablet (500 mg total) in the evening. Miroslava king Fluconazole (Diflucan) 150 MG oral Tablet 06-25 00:00: 00 Yes [id number] 150mg Take 1 tablet (150 mg total) by mouth every 72 hours Miroslava king Nitrofurant oin Monohyd Macro (Macrobid) 100 MG oral Capsule 5- 00:00: 00 01-13 00:00 :00 No [id number] 100mg Take 1 capsule (100 mg total) by mouth in the morning and 1 capsule (100 mg total) in the evening. Miroslava king No known medications 6- 10:30: 13 No Univers ity [facility] No known medications No Un bonnie ity [facility] No known medications No Un bonnie ity [facility] No known medications No Un bonnie ity [facility] No known medications No Un bonnie ity [facility] No known medications No Un bonnie ity [facility] No known medications No Un bonnie ity [facility] No known medications No Un bonnie ity [facility] No known medications No Un bonnie ity [facility] Immunizations Ordered Immunization Name Filled Immunization Name Date Status Comments Source Meningococcal B, OMV 2020-08-05 00:00:00 Completed [facility] Meningococcal B, OMV 2020-08-05 00:00:00 Completed [facility] Meningococcal B, OMV 2020-08-05 00:00:00 Completed [facility] Meningococcal B, V 2020-08-05 00:00:00 Completed [facility] Meningococcal Polysaccharide (groups A, C, Y and W-135) conjugate vaccine (MCV4P) 2019-01-03 00:00:00 Completed [facility] Meningococcal B, OMV 2019-01-03 00:00:00 Completed [facility] Meningococcal Polysaccharide (groups A, C, Y and W-135) conjugate vaccine (MCV4P) 2019-01-03 00:00:00 Completed [facility] Meningococcal B, OMV 2019-01-03 00:00:00 Completed [facility] Meningococcal Polysaccharide (groups A, C, Y and W-135) conjugate vaccine (MCV4P) 2019-01-03 00:00:00 Completed [facility] Meningococcal B, OMV 2019-01-03 00:00:00 Completed [facility] Meningococcal Polysaccharide (groups A, C, Y and W-135) conjugate vaccine (MCV4P) 2019-01-03 00:00:00 Completed [facility] Meningococcal B, OMV 2019-01-03 00:00:00 Completed [facility] Meningococcal Polysaccharide (groups A, C, Y and W-135) conjugate vaccine (MCV4P) 2019-01-03 00:00:00 Completed [facility] Meningococcal B, OMV 2019-01-03 00:00:00 Completed [facility] Meningococcal Polysaccharide (groups A, C, Y and W-135) conjugate vaccine (MCV4P) 2019-01-03 00:00:00 Completed [facility] Meningococcal B, OMV 2019-01-03 00:00:00 Completed [facility] Meningococcal Polysaccharide (groups A, C, Y and W-135) conjugate vaccine (MCV4P) 2019-01-03 00:00:00 Completed [facility] Meningococcal B, OMV 2019-01-03 00:00:00 Completed [facility] Meningococcal Polysaccharide (groups A, C, Y and W-135) conjugate vaccine (MCV4P) 2019-01-03 00:00:00 Completed [facility] Meningococcal B, OMV 2019-01-03 00:00:00 Completed [facility] Meningococcal Polysaccharide (groups A, C, Y and W-135) conjugate vaccine (MCV4P) 2019-01-03 00:00:00 Completed [facility] Meningococcal B, OMV 2019-01-03 00:00:00 Completed [facility] Meningococcal Polysaccharide (groups A, C, Y and W-135) conjugate vaccine (MCV4P) 2019-01-03 00:00:00 Completed [facility] Meningococcal B, OMV 2019-01-03 00:00:00 Completed [facility] Meningococcal Polysaccharide (groups A, C, Y and W-135) conjugate vaccine (MCV4P) 2014-10-03 00:00:00 Completed [facility] TDAP 2014-10-03 00:00:00 Completed [facility] Meningococcal Polysaccharide (groups A, C, Y and W-135) conjugate vaccine (MCV4P) 2014-10-03 00:00:00 Completed [facility] TDAP 2014-10-03 00:00:00 Completed [facility] Meningococcal Polysaccharide (groups A, C, Y and W-135) conjugate vaccine (MCV4P) 2014-10-03 00:00:00 Completed [facility] TDAP 2014-10-03 00:00:00 Completed [facility] Meningococcal Polysaccharide (groups A, C, Y and W-135) conjugate vaccine (MCV4P) 2014-10-03 00:00:00 Completed [facility] TDAP 2014-10-03 00:00:00 Completed [facility] Meningococcal Polysaccharide (groups A, C, Y and W-135) conjugate vaccine (MCV4P) 2014-10-03 00:00:00 Completed [facility] TDAP 2014-10-03 00:00:00 Completed [facility] Meningococcal Polysaccharide (groups A, C, Y and W-135) conjugate vaccine (MCV4P) 2014-10-03 00:00:00 Completed [facility] TDAP 2014-10-03 00:00:00 Completed [facility] Meningococcal Polysaccharide (groups A, C, Y and W-135) conjugate vaccine (MCV4P) 2014-10-03 00:00:00 Completed [facility] TDAP 2014-10-03 00:00:00 Completed [facility] Meningococcal Polysaccharide (groups A, C, Y and W-135) conjugate vaccine (MCV4P) 2014-10-03 00:00:00 Completed [facility] TDAP 2014-10-03 00:00:00 Completed [facility] Meningococcal Polysaccharide (groups A, C, Y and W-135) conjugate vaccine (MCV4P) 2014-10-03 00:00:00 Completed [facility] TDAP 2014-10-03 00:00:00 Completed [facility] Meningococcal Polysaccharide (groups A, C, Y and W-135) conjugate vaccine (MCV4P) 2014-10-03 00:00:00 Completed [facility] TDAP 2014-10-03 00:00:00 Completed [facility] Covid-19 Vaccine (Pfizer), Mrna-lnp, Eben Protein, Pf, 30mcg/0.3ml,IM Unknown Completed [facility] External Influenza Virus Vaccine, Split, up to age 3 Unknown Completed [facility] External Influenza Virus Vaccine, Split, up to age 3 Unknown Completed Mi[facility] Meningococcal Vaccine- Conjugate(Menactra) Unknown [facility] Vaccine- Conjugate(Menactra) Unknown [facility] Bexsero (Meningococcal Group B) Unknown Completed [facility] - External Bexsero (Meningococcal Group B) Unknown Completed [facility] External Tdap- (Boostrix, Adacel) Unknown Completed Miroslava [facility] Covid-19 Vaccine (Pfizer), Mrna-lnp, Eben Protein, Pf, 30mcg/0.3ml,IM Unknown Completed [facility] - External Influenza Virus Vaccine, Split, up to age 3 Unknown Completed [facility] - External Influenza Virus Vaccine, Split, up to age 3 Unknown Completed [facility] - External Meningococcal Vaccine- Conjugate(Menactra) Unknown Completed [facility] - External Meningococcal Vaccine- Conjugate(Menactra) Unknown Completed [facility] - External Bexsero (Meningococcal Group B) Unknown Completed [facility] Espinosa - External Bexsero (Meningococcal Group B) Unknown Completed [facility]ava Espinosa - External Tdap- (Boostrix, Adacel) Unknown Completed [facility] - External Vital Signs Vital Name Observation Time [...] Systolic blood pressure 2021-03-18 22:53:00 126 mm[Hg] [facility] Diastolic blood pressure 2021-03-18 22:53:00 50 mm[Hg] [facility] Heart rate 2021-03-18 22:53:00 66 /min [facility] Body temperature 2021-03-18 22:53:00 36.61 Mary [facility] Respiratory rate 2021-03-18 22:53:00 18 /min [facility] Body weight 2021-03-18 22:53:00 47.628 kg [facility] Oxygen saturation in Arterial blood by Pulse oximetry 2021-03-18 22:53:00 99 /min [facility] Systolic blood pressure 2020-08-05 15:23:00 109 mm[Hg] [facility] Diastolic blood pressure 2020-08-05 15:23:00 67 mm[Hg] [facility] Heart rate 2020-08-05 15:23:00 79 /min [facility] Body temperature 2020-08-05 15:23:00 37.28 Mary [facility] Respiratory rate 2020-08-05 15:23:00 17 /min [facility] Body height 2020-08-05 15:23:00 163.2 cm [facility] Body weight 2020-08-05 15:23:00 47.741 kg [facility] BMI 2020-08-05 15:23:00 17.92 kg/m2 [facility] Oxygen saturation in Arterial blood by Pulse oximetry 2020-08-05 15:23:00 98 /min [facility] Procedures Procedure Date / Time Performed Performing Clinician Source URINE TEST-BACK OFFICE TEST 2021-06-23 19:23:00 Prince Ashley CONSENT/REFUSAL FOR DIAGNOSIS AND TREATMENT 2021-03-18 22:55:28 Doctor Unassigned, [place] [facility] NOTICE OF PRIVACY PRACTICES 2021-03-18 22:55:12 Doctor Unassigned, [place] [facility] MENINGOCOCCAL B VACCINE, OMV, 2 DOSE, IM 2020-08-05 15:28:49 Saba Sánchez [facility] CONSENT/REFUSAL FOR DIAGNOSIS AND TREATMENT 2020-08-05 15:15:03 Doctor Unassigned, [place] [facility] AUTHORIZATION FOR RELEASE OF PHI 2019-08-19 05:01:00 Doctor Unassigned, [place] [facility] Encounters Start Date/Time End Date/Time Encounter Type Admission Type Attending [facility] Care Department Encounter ID Source 2023-05-19 00:00:00 2023-05-19 00:00:00 Outpatient PRINCE ASHLEY [id number] [facility] 2023-04-03 15:15:00 2023-04-03 15:15:00 Outpatient PRINCE ASHLEY [id number] [facility] 2023-03-09 14:45:00 2023-03-09 14:45:00 Outpatient CRIS THOMAS [id number] [facility] 2023-03-02 10:05:00 2023-03-02 10:05:00 Outpatient YAZMIN AGUIRRE [id number] [facility] 2023-03-02 09:30:00 2023-03-02 09:30:00 Outpatient PRINCE ASHLEY [id number] [facility] 2023-01-13 10:45:00 2023-01-13 10:45:00 Outpatient DARLYN BARKSDALE [id number] [facility] 2023-01-13 00:00:00 2023-01-13 00:00:00 Outpatient DARLYN BARKSDALE [id number] [facility] 2022-06-24 00:00:00 2022-06-24 00:00:00 Telephone Bi, [facility] [id number] 350.1.13.10 [id number] [id number] [facility] 2022-06-03 14:45:00 2022-06-03 14:45:00 Outpatient ALF BURNETTE [id number] [facility] 2021-09-19 07:11:00 2021-09-19 12:04:00 [facility] [id number] [facility] 2021-08-20 11:15:00 2021-08-20 11:15:00 Outpatient NGUYEN NIETO MIROSLAVA AGUIRRE [id number] [facility] 2021-07-16 00:00:00 2021-07-16 00:00:00 Outpatient DIANFELIZElie PRINCE AGUIRRE [id number] [facility] 2021-06-23 14:30:00 2021-06-23 14:30:00 Outpatient OFB13-ABE MIROSLAVA AGUIRRE [id number] [facility] 2021-06-23 13:45:00 2021-06-23 14:15:00 Office Visit Dianjaimee Prince CARRION 1.2.840.114 350.1.13.13 [id number] [id number] [facility] 2021-03-18 16:55:00 2021-03-18 17:45:00 Emergency X TIA PHELAN [facility] ERT [id number] [facility] 2021-03-18 16:55:00 2021-03-18 17:45:00 Emergency Tia Phelan [facility] 1.2.840.114 350.1.13.10 4.2.7.2.686 [id number] [facility] 2020-09-19 10:40:00 2020-09-19 10:40:00 Outpatient MICKIE MALIK [facility] [id number] [facility] 2020-08-05 10:20:00 2020-08-05 10:47:16 Outpatient Rhianna RIVERA SABA [facility] [id number] [facility] 2020-08-05 10:15:32 2020-08-05 10:47:16 Office Visit Saba Sánchez [facility] 1.2.840.114 350.1.13.10 4.2.7.2.686 [id number] [facility] 2020-08-05 00:00:00 2020-08-05 00:00:00 Orders Only Doctor Unassigned, [place] [facility] 1.2.840.114 350.1.13.10 4.2.7.2.686 [id number] [facility] 2020-08-03 00:00:00 2020-08-03 00:00:00 Telephone Poncho Szymanski [facility] 1.2.840.114 350.1.13.10 4.2.7.2.686 [id number] [facility] 2019-08-26 00:00:00 2019-08-26 00:00:[address] [facility] 1.2.840.114 350.1.13.10 4.2.7.2.686 [id number] 2019-08-26 00:00:00 2019-08-26 00:00:[address] [facility] 1.2.840.114 350.1.13.10 4.2.7.2.686 [id number] [facility] 2019-08-21 08:15:00 2019-08-21 08:15:00 Outpatient R UNKNOWN, ATTENDING [facility] [id number] [facility] 2019-08-21 07:55:52 2019-08-21 08:10:52 Laboratory Only Only, Web Test [facility] 1.2.840.114 350.1.13.10 4.2.7.2.686 [id number] 2019-08-21 07:55:52 2019-08-21 08:10:52 Laboratory Only Only, Web Test Unknown, Attending 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 [facility] 1.2.840.114 350.1.13.10 4.2.7.2.686 [id number] 2019-08-17 08:34:09 2019-08-17 08:49:09 [employer]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, 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 Diogenes Morgan [facility] 1.2.840.114 350.1.13.10 4.2.7.2.686 [id number] [facility] 2019-08-17 08:15:00 2019-08-17 08:15:00 Outpatient R [facility] [id number] [facility] Results Test Description Test Time Test Comments Results Result Co mments Source COMPREHENSIVE METABOLIC [id number] 07:00:41* Test Item Value Reference Range Interpretation Comme nts GLUCOSE (test code = 2217) 74 MG/DL 70-99 BUN (test code = 2208) 16 MG/DL 6-20 CREATININE (test code = 2214) 1.00 MG/DL 0.50-1.10 eGFR (2020 CKD-EPI) (test code = 97534) 83 ML/MIN/1.73 >60 CALC BUN/CREAT (test code = 2235) 16 RATIO 6-28 SODIUM (test code = 2231) 136 MEQ/L 133-146 POTASSIUM (test code = 2227) 4.0 MEQ/L 3.5-5.4 CHLORIDE (test code = 2215) 96 MEQ/L 95-107 CARBON DIOXIDE (test code = 220) 25 MEQ/L 19-31 CALCIUM (test code = 220) 10.3 MG/DL 8.5-10.5 PROTEIN, TOTAL (test code = 2229) 8.0 G/DL 6.1-8.3 ALBUMIN (test code = 220) 5.1 G/DL 3.5-5.2 CALC GLOBULIN (test code = 2240) 2.9 G/DL 2.1-3.7 CALC A/G RATIO (test code = 223) 1.8 RATIO 1.0-2.6 BILIRUBIN, TOTAL (test code = 7) 1.2 MG/DL See_Comment [Automated me ssage] The system which generated this result transmitted reference range: <=1.2. The reference range was not used to interpret this result as normal/abnormal. ALKALINE PHOSPHATASE (test code = 2203) 59 U/L 41-120 AST (test code = 2217) 21 U/L 9-40 ALT (test code = 2219) 16 U/L 5-40 UNLESS OTHERWISE INDICATED, ALL TESTING PERFORMED [facility] [address] [place] [address] CHIEF PILOT: IVANIA MISHRA M.D. CLIA NUMBER [id number] [place] [id number] HEMOGLOBIN [id number] 06:38:41* Test Item Value Reference Range Interpretation Comme nts HEMOGLOBIN A1c (test code = 00727) 4.8 % 4.2-5.6 CBC W/AUTO DIFF WITH [id number] 05:14:58* Test Item Value Reference Range Interpretation [...] 0.00-0.10 ABS NUCLEATED RBCS (test code = 38638) 0.02 K/UL 0.00-0.11 URINE TEST-BACK OFFICE [id number] 19:23:00* Test Item Value Reference Range Interpretation Comme nts TEST RESULT (test code = 154597) Neg Neg. - Pos. Internal Positive Control (t est code = 3223) Positive Miroslava Espinosa Notes Date/Time Note Provider Source 2023-03-02 09:18:05 [id number]:18:05F ormatting of this note is different from the original.Chief ComplaintPatient presents [place] [address]-2Rhdpr [id number]:25:39Nurse NoteTXT1.2.840.200772.1.13.131.2.7.2. [id number] for patient uxcu06608-5Yubzc NoteLNNARRATIVEFormatted C-CDA narrative [facility] [facility].[id number]:25:391.2.840.085672.1.7 2.3.15|1.2.840.056770.1.13.131.2.7.2. [id number] [facility]"
--- NOTE | 2023-07-24 21:38 | ER ---
Nurse's Notes [facility] Name: Dede Kulkarni Age: 23 yrs Sex: Female : 2000 Arrival Date: 07/24/2023 Time: 21:07 Bed IW1 Private MD: Diagnosis: Presentation: 07/23 21:36 Note Called pt, pt decided to leave before being triaged. ERP notified. mb9 Assessment: 21:25 Reassessment: Called pt from triage, no answer. mb9 ED Course: 21:14 Patient arrived in ED. jj6 21:17 Nat[facility]C [facility] kb 21:17 Breezy Ortiz MD is Attending Physician. kb Administered Medications: No medications were administered Outcome: 21:37 Patient left the ED. mb9 Signatures: Natasha Mann FNP-C FNP-Ckb Jeffries, Jennifer jj6 Klaudia Lopez, RN RN mb9
--- NOTE | 2023-07-24 21:38 | EDPHYS ---
Physician Documentation [facility] Name: Dede Kulkarni Age: 23 yrs Sex: Female : 2000 Arrival Date: 07/24/2023 Time: 21:07 Bed IW1 Private MD: ED Physician MDM: 07/23 21:17 Patient medically screened. kb 21:25 ED course: [facility] . kb Administered Medications: No medications were administered Disposition Summary: 07/24/23 21:37 Eloped Notes: Disposition: Before Triage mb9 Reason: unknown mb9 Signatures: Natasha Mann, Klaudia Kamara RN RN mb9
== END 2023-07-24 21:37 | disposition left against medical advice (07) ==
LOC: ER 21:07
DX: Z02.9 Encounter for administrative examinations, unspecified (principal)

== ENCOUNTER 2023-07-25 10:08 | Emergency (ER) | payer SELFPAY ==
--- OUTSIDE RECORDS SUMMARY | 2023-07-25 10:12 | XMS REPORT | Continuity of Care Document ---
Author Name Unknown Address [address] [facility] [address] [place] [address] [facility] Address [address] [facility] [address] [place] [address] Care Team Providers Care Supervisor Paste Plant Name Role Phone ([place]), [facility] Primary Care Phys ician SHERICE FAN Attending Clinician Unavailab Sherice Norton DO Attending Clinician [phone] PRINCE ASHLEY Attending Clinician Unavaila CRIS Costa Attending Clinician Unavailable [id number] Attending Clinician Unavailable DARLYN BARKSDALE Attending Clinician Unavailable Emily Ashraf Attending Clinician [phone] ALF BURNETTE Attending Clinician Unavaila DANAE Rowell JERRY-EDELMIRA Attending Clinician Shilpa NGUYEN Longo Attending Clinician Unavailable [id number] Attending Clinician Unavailable Prince Ashley MD Attending Clinician [phone] TIA PHELAN Attending Clinician Unavaila slim WADEP, Tia Otero Attending Clinician MICKIE AGUIRRE Attending Clinician UnavailSABA Vega Attending Clinician Unavaila slim Garduno, Saba Attending Clinician [phone] Doctor Unassigned, Ansley Attending Clinician U david Szymanski MD, Poncho Attending Clinician Lucius DANGELO, Cyndee Attending Clinician Unavailable UNKNOWN, ATTENDING Attending Clinician Unavailab le Only, Web Test Attending Clinician Unavailable Unknown, Attending Attending Clinician Unavailab le 1, [facility] Attending Clinician Unavailable Eddie VELASQUEZ, Diogenes Attending Clinician Payers Payer Name Policy Type Policy Number Effective Date Expirati on Date Source [employer] [place] [id number] [employer] [place] 2 [id number] 2022 00:00:00 MEDICAID PENDING PENDING 2021 00:00:00 Problems Condition Name Condition Details Condition Category Status Onset Date Resolution Date Last Treatment Date Treating Clinician Comments Source Acne Acne Disease Active 10-03 00:00: 00 [facility] No known active problems No known active problems Disease Miroslava Espinosa Allergies, Adverse Reactions, Alerts Allergy Name Allergy Type Status Severity Reaction(s) Onset Date Inactive Date Treating Clinician Comments Source NO KNOWN ALLERGIE S Drug Class Active [facility] Social History Social Habit Start Date Stop Date Quantity Comments Source Sexual orientation [facility] Gender identity Mallory Espinosa - External Alcoholic beverage intake 2023-07-24 00:00:00 2023-07-24 00:00:00 Current non-drinker of alcohol (finding) [facility] Alcohol intake 2023-03-02 00:00:00 2023-03-02 00:00:00 Ex-drinker (finding) Miroslava Espinosa - External History of Social function 2020-08-05 00:00:00 2020-08-05 00:00:00 [facility] Tobacco use and exposure 2014-10-03 00:00:00 2014-10-03 00:00:00 Smokeless tobacco non-user [facility] Sex Assigned At 2002 00:00:00 2000 00:00:00 Miroslava Stern Smoking Status Start Date Stop Date Source Never smoked tobacco [facility] Medications Ordered Medication Name Filled Medication Name Start Date Stop Date Current Medication? Ordering Clinician Indication Dosage Frequency Signature (SIG) Comments Components Source NaCl 0.9% (NS) bolus infusion 1,000 mL 07-24 04:00: 00 07-24 04:20 :00 No 1000mL at 999 mL/hr, 1,000 mL, IV Infusion, ONCE, 1 dose, On Mon07/24/23 at 2300, [facility] metoclopram korey HCl (REGLAN) injection 10 mg 07-24 03:15: 00 07-24 03:37 :00 No 10mg 10 mg, Slow IV Push, ONCE, 1 dose, On Mon07/24/23 at 2215, [facility] haloperidol lactate (HALDOL) injection 2.5 mg 07-24 03:15: 00 07-24 03:37 :00 No 2.5mg 2.5 mg, Intravenou s, ONCE, 1 dose, On Mon07/24/23 at 2215, STAT [facility] metoclopram korey HCl 10 mg tablet 07-23 00:00: 00 Yes [id number] 10mg Take 1 tablet by mouth every 6 (six) hours. [facility] Valacyclovi r HCl (Valtrex) 1 g oral Tablet 1-18 00:00: 00 Yes [id number] 1000mg Take 1 tablet (1,000 mg total) by mouth 2 times daily. Miroslava king Pseudoeph-B romphen-DM 30-2-10 MG/5ML oral Syrup 06-03 00:00: 00 Yes [id number] 10mL Q.25D Take 10 mL by mouth 4 times daily as needed Miroslava king Dextrometho rphan-guaiF ENesin (Mucinex DM Maximum Strength) 60-1200 MG oral Tablet 12 Hour Sustained Release 06-03 00:00: 00 Yes [id number] 1{tbl} Q.5D Take 1 tablet by mouth 2 times daily as needed Miroslava king Metronidazo le (Flagyl) 500 MG oral Tablet 06-25 00:00: 00 Yes [id number] 500mg Take 1 tablet (500 mg total) by mouth in the morning and 1 tablet (500 mg total) in the evening. Miroslava king Fluconazole (Diflucan) 150 MG oral Tablet 06-25 00:00: 00 Yes [id number] 150mg Take 1 tablet (150 mg total) by mouth every 72 hours Miroslava king Nitrofurant oin Monohyd Macro (Macrobid) 100 MG oral Capsule 06-23 00:00: 00 01-13 00:00 :00 No [id number] 100mg Take 1 capsule (100 mg total) by mouth in the morning and 1 capsule (100 mg total) in the evening. Miroslava king No known medications 08-05 10:30: 13 No [facility] No known medications No Un bonnie ity [facility] No known medications No Un bonnie ity [facility] No known medications No Un bonnie ity [facility] No known medications No Un bonnie ity [facility] No known medications No Un bonnie ity [facility] No known medications No Un bonnie ity [facility] No known medications No Un bonnie ity [facility] No known medications No Un bonnie ity [facility] Immunizations Ordered Immunization Name Filled Immunization Name Date Status Comments Source Meningococcal B, OMV 2020-08-05 00:00:00 Completed [facility] Meningococcal B, OMV 2020-08-05 00:00:00 Completed [facility] Meningococcal B, OMV 2020-08-05 00:00:00 Completed [facility] Meningococcal B, OMV 2020-08-05 00:00:00 Completed [facility] Meningococcal Polysaccharide (groups A, C, Y and W-135) conjugate vaccine (MCV4P) 2019-01-03 00:00:00 Completed [facility] Meningococcal B, OMV 2019-01-03 00:00:00 Completed [facility] Meningococcal Polysaccharide (groups A, C, Y and W-135) conjugate vaccine (MCV4P) 2019-01-03 00:00:00 Completed [facility] Meningococcal B, OMV 2019-01-03 00:00:00 Completed [facility] Meningococcal Polysaccharide (groups A, C, Y and W-135) conjugate vaccine (MCV4P) 2019-01-03 00:00:00 Completed [facility] Meningococcal B, OMV 2019-01-03 00:00:00 Completed [facility] Meningococcal Polysaccharide (groups A, C, Y and W-135) conjugate vaccine (MCV4P) 2019-01-03 00:00:00 Completed [facility] Meningococcal B, OMV 2019-01-03 00:00:00 Completed [facility] Meningococcal Polysaccharide (groups A, C, Y and W-135) conjugate vaccine (MCV4P) 2019-01-03 00:00:00 Completed [facility] Meningococcal B, OMV 2019-01-03 00:00:00 Completed [facility] Meningococcal Polysaccharide (groups A, C, Y and W-135) conjugate vaccine (MCV4P) 2019-01-03 00:00:00 Completed [facility] Meningococcal B, OMV 2019-01-03 00:00:00 Completed [facility] Meningococcal Polysaccharide (groups A, C, Y and W-135) conjugate vaccine (MCV4P) 2019-01-03 00:00:00 Completed [facility] Meningococcal B, OMV 2019-01-03 00:00:00 Completed [facility] Meningococcal Polysaccharide (groups A, C, Y and W-135) conjugate vaccine (MCV4P) 2019-01-03 00:00:00 Completed [facility] Meningococcal B, OMV 2019-01-03 00:00:00 Completed [facility] Meningococcal Polysaccharide (groups A, C, Y and W-135) conjugate vaccine (MCV4P) 2019-01-03 00:00:00 Completed [facility] Meningococcal B, OMV 2019-01-03 00:00:00 Completed [facility] Meningococcal Polysaccharide (groups A, C, Y and W-135) conjugate vaccine (MCV4P) 2019-01-03 00:00:00 Completed [facility] Meningococcal B, OMV 2019-01-03 00:00:00 Completed [facility] Meningococcal Polysaccharide (groups A, C, Y and W-135) conjugate vaccine (MCV4P) 2014-10-03 00:00:00 Completed [facility] TDAP 2014-10-03 00:00:00 Completed [facility] Meningococcal Polysaccharide (groups A, C, Y and W-135) conjugate vaccine (MCV4P) 2014-10-03 00:00:00 Completed [facility] TDAP 2014-10-03 00:00:00 Completed [facility] Meningococcal Polysaccharide (groups A, C, Y and W-135) conjugate vaccine (MCV4P) 2014-10-03 00:00:00 Completed [facility] TDAP 2014-10-03 00:00:00 Completed [facility] Meningococcal Polysaccharide (groups A, C, Y and W-135) conjugate vaccine (MCV4P) 2014-10-03 00:00:00 Completed [facility] TDAP 2014-10-03 00:00:00 Completed [facility] Meningococcal Polysaccharide (groups A, C, Y and W-135) conjugate vaccine (MCV4P) 2014-10-03 00:00:00 Completed [facility] TDAP 2014-10-03 00:00:00 Completed [facility] Meningococcal Polysaccharide (groups A, C, Y and W-135) conjugate vaccine (MCV4P) 2014-10-03 00:00:00 Completed [facility] TDAP 2014-10-03 00:00:00 Completed [facility] Meningococcal Polysaccharide (groups A, C, Y and W-135) conjugate vaccine (MCV4P) 2014-10-03 00:00:00 Completed [facility] TDAP 2014-10-03 00:00:00 Completed [facility] Meningococcal Polysaccharide (groups A, C, Y and W-135) conjugate vaccine (MCV4P) 2014-10-03 00:00:00 Completed [facility] TDAP 2014-10-03 00:00:00 Completed [facility] Meningococcal Polysaccharide (groups A, C, Y and W-135) conjugate vaccine (MCV4P) 2014-10-03 00:00:00 Completed [facility] TDAP 2014-10-03 00:00:00 Completed [facility] Meningococcal Polysaccharide (groups A, C, Y and W-135) conjugate vaccine (MCV4P) 2014-10-03 00:00:00 Completed [facility] TDAP 2014-10-03 00:00:00 Completed [facility] Meningococcal Polysaccharide (groups A, C, Y and W-135) conjugate vaccine (MCV4P) Unknown Completed [facility] TDAP Unknown Completed [facility] Meningococcal Polysaccharide (groups A, C, Y and W-135) conjugate vaccine (MCV4P) Unknown Completed [facility] Meningococcal B, OMV Unknown Completed [facility] Meningococcal B, OMV Unknown Completed [facility] Covid-19 Vaccine (Pfizer), Mrna-lnp, Eben Protein, Pf, 30mcg/0.3ml,IM Unknown Completed Miroslava [facility] - External Influenza Virus Vaccine, Split, up to age 3 Unknown Completed [facility] - External Influenza Virus Vaccine, Split, up to age 3 Unknown Completed [facility] - External Meningococcal Vaccine- Conjugate(Menactra) Unknown Completed [facility] - External Meningococcal Vaccine- Conjugate(Menactra) [facility] Bexsero (Meningococcal Group B) Unknown Completed [facility] - External Bexsero (Meningococcal Group B) Unknown Completed [facility] External Tdap- (Boostrix, Adacel) Unknown Completed [facility] External Covid-19 Vaccine (ICEdot), Mrna-lnp, Eben Protein, Pf, 30mcg/0.3ml,IM Unknown [facility] Influenza Virus Vaccine, Split, up to age 3 Unknown Completed [facility] - External Influenza Virus Vaccine, Split, up to age 3 Unknown Completed [facility] - External Meningococcal Vaccine- Conjugate(Menactra) Unknown Completed Miroslava S [facility] - External Meningococcal Vaccine- Conjugate(Menactra) Unknown Completed [facility] - External Bexsero (Meningococcal Group B) [facility] Bex[facility]o (Meningococcal Group B) Unknown Completed Miroslava [facility] - External Tdap- (Boostrix, Adacel) Unknown Completed Miroslava [facility] - External Vital Signs Vital Name Observation Time Observation Value Comments Dominick crowell Systolic blood pressure 2023-07-25 04:15:00 103 mm[Hg] [facility] Diastolic blood pressure 2023-07-25 04:15:00 53 mm[Hg] [facility] Heart rate 2023-07-25 04:15:00 85 /min [facility] Body temperature 2023-07-25 04:15:00 36.67 Mary [facility] Respiratory rate 2023-07-25 04:15:00 16 /min [facility] Oxygen saturation in Arterial blood by Pulse oximetry 2023-07-25 04:15:00 98 /min [facility] Body height 2023-07-25 02:52:[address] [facility] Body weight 2023-07-25 02:52:[address] [facility] BMI 2023-07-25 02:52:00 18.30 kg/m2 [facility] Systolic blood pressure 2023-03-02 15:21:00 102 mm[Hg] [...] ld Heart rate 2021-06-23 18:40:00 80 /min Abdi Espinosa Body temperature 2021-06-23 18:40:00 36.61 Mary Miroslava Espinosa Respiratory rate 2021-06-23 18:40:00 20 /min Miroslava Espinosa Body height 2021-06-23 18:40:00 162.6 cm Mallory Espinosa Body weight 2021-06-23 18:40:00 49.079 kg Mallory Espinosa BMI 2021-06-23 18:40:00 18.57 kg/m2 Mallory Espinosa Systolic blood pressure 2021-03-18 22:53:00 126 mm[Hg] [facility] Diastolic blood pressure 2021-03-18 22:53:00 50 mm[Hg] [facility] Heart rate 2021-03-18 22:53:00 66 /min [facility] Body temperature 2021-03-18 22:53:00 36.61 Mary [facility] Respiratory rate 2021-03-18 22:53:00 18 /min [facility] Body weight 2021-03-18 22:53:[address] [facility] Oxygen saturation in Arterial blood by Pulse oximetry 2021-03-18 22:53:00 99 /min [facility] Systolic blood pressure 2020-08-05 15:23:00 109 mm[Hg] [facility] Diastolic blood pressure 2020-08-05 15:23:00 67 mm[Hg] [facility] Heart rate 2020-08-05 15:23:00 79 /min [facility]ive [facility] Body temperature 2020-08-05 15:23:00 37.28 Mary [facility] Respiratory rate 2020-08-05 15:23:00 17 /min [facility] Body height 2020-08-05 15:23:00 163.2 cm [facility] Body weight 2020-08-05 15:23:[address] [facility] BMI 2020-08-05 15:23:00 17.92 kg/m2 [facility] Oxygen saturation in Arterial blood by Pulse oximetry 2020-08-05 15:23:00 98 /min [facility] Procedures Procedure Date / Time Performed Performing Clinician Source POCT TEST 2023-07-25 03:41:00 Kiana Fan ra [facility] COMP. METABOLIC PANEL (46838) 2023-07-25 03:16:00 Sherice Fan [facility] CBC WITH DIFF 2023-07-25 03:16:00 Sherice Fan [facility] URINE TEST-BACK OFFICE TEST 2021-06-23 19:23:00 Prince Ashley CONSENT/REFUSAL FOR DIAGNOSIS AND TREATMENT 2021-03-18 22:55:28 Doctor Unassigned, Ansley [facility] NOTICE OF PRIVACY PRACTICES 2021-03-18 22:55:12 Doctor Unassigned, Ansley [facility] MENINGOCOCCAL B VACCINE, OMV, 2 DOSE, IM 2020-08-05 15:28:49 Saba Sánchez [facility] CONSENT/REFUSAL FOR DIAGNOSIS AND TREATMENT 2020-08-05 15:15:03 Doctor Unassigned, Ansley [facility] AUTHORIZATION FOR RELEASE OF PHI 2019-08-19 05:01:00 Doctor Unassigned, Ansley [facility] Encounters Start Date/Time End Date/Time Encounter Type Admission Type Attending [facility] Care Facility Care Department Encounter ID Source 2023-07-24 21:59:00 2023-07-24 23:22:00 Emergency X SHERICE FAN [facility] ERT [id number] [facility] 2023-07-24 21:59:00 2023-07-24 23:22:00 Emergency Sherice Fan [facility] [id number] 350.1.13.10 4.2.7.2.[id number] [facility] 2023-05-19 00:00:00 2023-05-19 00:00:00 Outpatient PRINCE ASHLEY [id number] Miroslava Espinosa 2023-04-03 15:15:00 2023-04-03 15:15:00 Outpatient PRINCE ASHLEY MIROSLAVA AGUIRRE [id number] [facility] 2023-03-09 14:45:00 2023-03-09 14:45:00 Outpatient CRIS THOMAS MIROSLAVA AGUIRRE [id number] [facility] 2023-03-02 10:05:00 2023-03-02 10:05:00 Outpatient LAB59 MIROSLAVA AGUIRRE [id number] [facility] 2023-03-02 09:30:00 2023-03-02 09:30:00 Outpatient PRINCE ASHLEY MIROSLAVA AGUIRRE [id number] [facility] 2023-01-13 10:45:00 2023-01-13 10:45:00 Outpatient DARLYN BARKSDALE [facility]VA AGUIR[facility] [id number] [facility] 2023-01-13 00:00:00 2023-01-13 00:00:00 Outpatient APOLONIA DARLYN MIROSLAVA AGUIRRE [id number] [facility] 2022-06-24 00:00:00 2022-06-24 00:00:00 Telephone [facility] 1.2.840.114 350.1.13.10 4.2.7.2.[id number] [facility] 2022-06-03 14:45:00 2022-06-03 14:45:00 Outpatient ALF BURNETTE [id number] [facility] 2021-09-19 07:11:00 2021-09-19 12:04:00 Emergency E DANAE MUNSON [facility]BL [id number] [facility] 2021-08-20 11:15:00 2021-08-20 11:15:00 Outpatient NGUYEN NIETO [id number] [facility] 2021-07-16 00:00:00 2021-07-16 00:00:00 Outpatient PRINCE ASHLEY M[facility]OSLAVA AGUIRRE [id number] [facility] 2021-06-23 14:30:00 2021-06-23 14:30:00 Outpatient [id number] MIROSLAVA AGUIRRE [id number] Miroslava Espinosa 2021-06-23 13:45:00 2021-06-23 14:15:00 Office Visit Prince Ashley 1..114 350.1.13.13 [id number] [id number] Miroslava Espinosa 2021-03-18 16:55:00 2021-03-18 17:45:00 Emergency X TIA PHELAN [facility] ERT [id number] [facility] 2021-03-18 16:55:00 2021-03-18 17:45:00 Emergency Tia Phelan F [facility] 1..114 350.1.13.10 4.2.7.2.[id number] [facility] 2020-09-19 10:40:00 2020-09-19 10:40:00 Outpatient MICKIE MALIK [facility] [id number] [facility] 2020-08-05 10:20:00 2020-08-05 10:47:16 Outpatient Rhianna RIVERA SABA [facility] [id number] [facility] 2020-08-05 10:15:32 2020-08-05 10:47:16 Office Visit Sánchez Saba [facility] 1.114 350.1.13.10 4.2.7.2.[id number] [facility] 2020-08-05 00:00:00 2020-08-05 00:00:00 Orders Only Doctor Unassigned, Ansley [facility] 1.114 350.1.13.10 4.2.7.2.[id number] [facility] 2020-08-03 00:00:00 2020-08-03 00:00:00 Telephone Poncho Szymanski [facility] 1.2.840.114 350.1.13.10 4.2.7.2.[id number] [facility] 2019-08-26 00:00:00 2019-08-26 00:00:00 Telephone Lucius, [facility] 1.2.840.114 350.1.13.10 4.2.7.2.686 [id number] 2019-08-26 00:00:00 2019-08-26 00:00:00 Telephone Lucius [facility] 1.2.840.114 350.1.13.10 4.2.7.2.[id number] [facility] 2019-08-21 08:15:00 2019-08-21 08:15:00 Outpatient R UNKNOWN, ATTENDING [facility] [id number] [facility] 2019-08-21 07:55:52 2019-08-21 08:10:52 Laboratory Only Only, Web Test [facility] 1.2840.114 350.1.13.10 4.2.7.2.686 [id number] 2019-08-21 07:55:52 2019-08-21 08:10:52 Laboratory Only Only, Web Test Unknown, Attending [facility] 1.2.840.114 350.1.13.10 4.2.7.2.[id number] [facility] 2019-08-19 00:00:00 2019-08-19 00:00:00 Orders Only Doctor Unassigned, Ansley [facility] 1.2.840.114 350.1.13.10 4.2.7.2.686 [id number] 2019-08-19 00:00:00 2019-08-19 00:00:00 Orders Only Doctor Unassigned, Ansley [facility] 1.2.840.114 350.1.13.10 4.2.7.2.[id number] [facility] 2019-08-17 08:34:09 2019-08-17 08:49:09 Building Architectural Designer Visit 1, Adc Lab [facility] 1.2.840.114 350.1.13.10 4.2.7.2.686 [id number] 2019-08-17 08:34:09 2019-08-17 08:49:09 Building Architectural Designer Visit 1, Adc Lab Diogenes Morgan [facility] 1.2.840.114 350.1.13.10 4.2.7.2.[id number] [facility] 2019-08-17 08:15:00 2019-08-17 08:15:00 Outpatient R [facility] [id number] [facility] Results Test Description Test Time Test Comments Results Result Co mments Source [facility] [id number] 03:41:00* Test Item Value Reference Range Interpretation Comme nts POCT PREG (test code = 1605) Negative On board controls acceptable with C Line (test code = 3574) Yes POCT PREG LOT # (test code = 3575) [id number] POCT PREG TEST DATE ( test code = 3576) 05/21/2024 Lab Interpretation (test cod e = 13042-6) Normal [facility] [id number] 03:31:41* Test Item Value Reference Range Interpretation Comme nts WBC (test code = 6690-2) 10.41 4.30-11.10 RBC (test code = 789-8) 4.70 3.93-5.25 HGB (test code = 718-7) 14.4 g/dL 11.6-15.0 HCT (test code = 4544-3) 39.7 % 35.7-45.2 MCV (test code = 787-2) 84.5 fL 80.6-95.5 MCH (test code = 785-6) 30.6 pg 25.9-32.8 MCHC (test code = 786-4) 36.3 g/dL 31.6-35.1 H RDW-SD (test code = 01305-3) 34.4 fL 39.0-49.9 L RDW-CV (test code = 788-0) 11.2 % 12.0-15.5 L PLT (test code = 777-3) 276 166-358 MPV (test code = 10408-6) 10.7 fL 9.5-12.9 NRBC/100 WBC (test code = 4137699935) 0.0 0.0-10.0 NRBC x10^3 (test code = 4197145594) See_Comment [Automated messa ge] The system which generated this result transmitted reference range: 10*3/?L. The reference range was not used to interpret this result as normal/abnormal. GRAN MAT (NEUT) % (test code = 770-8) 69.3 % IMM GRAN % (test code = 9415255956) 0.20 % LYMPH % (test code = 736-9) 20.8 % MONO % (test code = 5905-5) 7.9 % EOS % (test code = 713-8) 1.3 % BASO % (test code = 706-2) 0.5 % GRAN MAT x10^3(ANC) (test code = 4436208768) 7.21 10*3/uL 1.88-7.09 H IMM GRAN x10^3 (test code = 8505730878) 0.00-0.06 LYMPH x10^3 (test code = 731-0) 2.17 10*3/uL 1.32-3.29 MONO x10^3 (test code = 742-7) 0.82 10*3/uL 0.33-0.92 EOS x10^3 (test code = 711-2) 0.14 10*3/uL 0.03-0.39 BASO x10^3 (test code = 704-7) 0.05 10*3/uL 0.01-0.07 Lab Interpretation (test code = 91689-2) Abnormal [facility] METABOLIC [id number] 07:00:41* Test Item Value Reference Range Interpretation Comme nts GLUCOSE (test code = 2217) 74 MG/DL 70-99 BUN (test code = 2208) 16 MG/DL 6-20 CREATININE (test code = 2214) 1.00 MG/DL 0.50-1.10 eGFR (2020 CKD-EPI) (test code = ) 83 ML/MIN/1.73 >60 CALC BUN/CREAT (test code = 2234) 16 RATIO 6-28 SODIUM (test code = 2230) 136 MEQ/L 133-146 POTASSIUM (test code = 2227) 4.0 MEQ/L 3.5-5.4 CHLORIDE (test code = 2214) 96 MEQ/L 95-107 CARBON DIOXIDE (test code = 2205) 25 MEQ/L 19-31 CALCIUM (test code = 2208) 10.3 MG/DL 8.5-10.5 PROTEIN, TOTAL (test code = 2228) 8.0 G/DL 6.1-8.3 ALBUMIN (test code = 2200) 5.1 G/DL 3.5-5.2 CALC GLOBULIN (test code = 2239) 2.9 G/DL 2.1-3.7 CALC A/G RATIO (test code = 2233) 1.8 RATIO 1.0-2.6 BILIRUBIN, TOTAL (test code = 2206) 1.2 MG/DL See_Comment [Automated me ssage] The system which generated this result transmitted reference range: <=1.2. The reference range was not used to interpret this result as normal/abnormal. ALKALINE PHOSPHATASE (test code = 2203) 59 U/L 41-120 AST (test code = 2217) 21 U/L 9-40 ALT (test code = 2218) 16 U/L 5-40 UNLESS OTHERWISE INDICATED, ALL TESTING PERFORMED [facility] [address] [place] [address] QUILLER HAND: IVANIA MISHRA M.D. CLIA NUMBER [id number] [place] [id number] LIPID [id number] 07:00:41* Test Item Value Reference Range Interpretation Comme nts CHOLESTEROL (test code = 2209) 157 MG/DL <200 TRIGLYCERIDES (test code = 223) 54 MG/DL <150 HDL CHOLESTEROL (test code = 222) 54 MG/DL >39 CALC LDL CHOL (test code = 2236) 89 MG/DL <100 NOTE: CALCULATED LDL IS BASED ON HAILE-FLORES METHOD WHICHINCLUDES ADJUSTABLE TRIGLYCERIDE:VLDL CHOLESTEROL RATIO.THIS FACTOR VARIES BY MEASURED TRIGLYCERIDE AND NON-HDLCHOLESTEROL CONCENTRATIONS WITH INCREASED CALCULATED LDL SEENIN HIGHER TRIGLYCERIDE OR LOWER NON-HDL SPECIMENS. FOR MOREINFORMATION, SEE CLIENT ANNOUNCEMENT AT [email or web address] RISK RATIO LDL/HDL (test code = 2238) 1.65 RATIO <3.22 HEMOGLOBIN [id number] 06:38:41* Test Item Value Reference Range Interpretation Comme nts HEMOGLOBIN A1c (test code = 43603) 4.8 % 4.2-5.6 CBC W/AUTO DIFF WITH [id number] 05:14:58* Test Item Value Reference Range Interpretation [...] = 1065) 0.0 /100 WBC'S See_Comment [Automated [employer]] The system which generated this result [...] 0.00-0.10 ABS NUCLEATED RBCS (test code = 29909) 0.02 K/UL 0.00-0.11 URINE TEST-BACK OFFICE [id number] 19:23:00* Test Item Value Reference Range Interpretation Comme nts TEST RESULT (test code = 925267) Neg Neg. - Pos. Internal Positive Control (t est code = 3223) Positive Miroslava Seedwinita Notes Date/Time Note Provider Source 2023-07-24 23:21:42 8242-24-52H24:21:42F ormatting of this note might be different from the original.Pt given printed and verbal discharge instructions regarding nausea/vomiting, encouraged hydration,Prescription sent to pt's pharmacy- reglanDiscussed haldol side affects and to avoid driving/operating machinery/or engaging in activities requiring alertness while taking.Pt verbalized understanding of instructions,pt encouraged to follow up with pcpAdvised to seek medical attention for new/prolonged/worsening of symptoms,No adverse reaction to meds given in ER noted upon dischargePIV d'cd, dressing to site, catheter in tact.Awake, alert oriented, resp reg unlabored, skin w/d, pt leaving in no apparent distress, 45750-0Niicdhlam department YonlGB6353-63-62Z10:22:22Emergency department NoteTXT1.2.840.927342.1.13.104.2.7 .2.564326|[id number] for patient hyqm00812-9LpwdGVJCCACZRUAWjvwhnbv d C-CDA narrative [id number] R Shehadeh RNUTMBUT - [address] Xa[id number] 81MQRHVOOPNXEJEMRZQNGXJD0516-27-93 T23:22:221.2.840.179321.1.72.3.15| 1.2.840.052114.1.13.104.2.7.2.7278 [id number] Veroinca Lares RN [facility] 2023-07-24 21:50:23 0585-31-51H39:50:23F ormatting of this note might be different from the original.Pt presents with vomiting and lower abd pain. Pt reports vomiting began 2 weeks ago, every morning, then it began occurring several times a day. Pt states 3 days ago she began having vomiting and abd pain throughout the day. 3 days ago she also quit smoking marijuana and stated it made the vomiting worse.Last menstrual cycle was last . 13624-0Isjnfavlv department Triage tjgpBR0592-74-75P67:58:00[facility] Triage noteTXT1.2.840.236392.1.13.104.2.7 .2.713351|[id number] for patient yenh25932-2Hcjriguhi department NoteLNNARRATIVEFormatted C-CDA narrative [id number] E Linkes RN[address] [id number] 11VJCUBCWMVJIQGCDKNOESGK8041-89-79 T21:58:001.2.840.159514.1.72.3.15| 1.2.840.036620.1.13.104.2.7.2.7278 [id number] Janet Maki RN [facility] 2023-07-24 21:39:00 6362-12-31O16:39:00F ormatting of this note is different from the original.[facility] [place] Emergency Department NotePatient Name: Nicole Nesbitt of : 2000 23 year old femaleTreatment Room: [facility] FT/OQHO23-54Qhuxlue Record Number: [id number] Care Physician: No primary care provider on file.Patient Escorted by: Friend [6]Mode of Arrival: Personal means [1]EMS Treatment Prior to ED Arrival:[employer]VAL [employer] treatment: NoneTravel and Exposure Screening:SymptomsDoes patient have any of these symptoms?: (not recorded)Exposure ScreeningHas patient had contact with someone with a communicable disease in the last month?: (not recorded)Diseases exposed to:: (not recorded)Is Patient ?: (not recorded)Exposure Date: (not recorded)Chief Complaint:Chief ComplaintPatient presents withVomitingHistory of Present Illness:The patient presents from home for evaluation for nausea and vomiting for the past 2 weeks. She admits to history of marijuana abuse. No recent trips or travel. No recent antibiotics. No bad food exposure. No sick contacts. No diarrhea. She reports she has quit using marijuana in the past several days but is still vomiting. She also reports she feels lightheaded from so much vomiting. No abdominal pain. She denies being .Here for evaluation.Past Medical History/Immunizations:Past Medical History:Diagnosis DateFracture Multiplebilateral wristsTetanus received in last 5 years: UnknownAllergies:No Known AllergiesPast Social History:Tobacco UseNever smoked or used smokeless tobacco.Alcohol UseNo.Drug UseNo.Sexual ActivityNot sexually active.Past Surgical History:History reviewed. No pertinent surgical history.Review of Systems:Review of SystemsConstitutional: Negative for chills and fever.Cardiovascular: Negative for chest pain.Gastrointestinal: Positive for nausea and vomiting. Negative for abdominal pain and diarrhea.Genitourinary: Negative for dysuria.Musculoskeletal: Negative for arthralgias, neck pain and neck stiffness.Skin: Negative for wound.Neurological: Negative for dizziness.Psychiatric/Behavioral: Negative for agitation.Endocrine: Negative for goiter.Physical Exam:ED Triage VitalsWeight 07/24/232151 49.9 kg (110 lb)Actual or estimated --Height 07/24/232151 1.651 m (5' 5")BP 07/24/232151 112/68Pulse 07/24/232151 81Resp 07/24/232151 16Temp 07/24/232151 36.6 ?C (97.9 ?F)Temp source 07/24/235 OralSpO2 07/24/232151 98 %Measured on 07/24/232151 Room airPhysical ExamVitals and nursing note reviewed.Constitutional:Appearance : Normal appearance.HENT:Head: Normocephalic and atraumatic.Mouth/Throat:Mouth: Mucous membranes are dry.Cardiovascular:Rate and Rhythm: Normal rate and regular rhythm.Pulses: Normal pulses.Pulmonary:Effort: Pulmonary effort is normal. No respiratory distress.Breath sounds: No wheezing.Abdominal:General: There is no distension.Palpations: There is no mass.Tenderness: There is no abdominal tenderness. There is no guarding.Hernia: No hernia is present.Musculoskeletal:General: Normal range of motion.Cervical back: Normal range of motion and neck supple.Skin:General: Skin is warm and dry.Neurological:General: No focal deficit present.Mental Status: She is alert and oriented to person, place, and time.Radiology:No orders to displayLab Results:Lab ResultsCBC WITH DIFF - AbnormalResult Value Ref RangeWBC 10.41 4.30 - 11.10 10*3/?LRBC 4.70 3.93 - 5.25 10*6/?LHGB 14.4 11.6 - 15.0 g/dLHCT 39.7 35.7 - 45.2 %MCV 84.5 80.6 - 95.5 fLMCH 30.6 25.9 - 32.8 pgMCHC 36.3 (*) 31.6 - 35.1 g/dLRDW-SD 34.4 (*) 39.0 - 49.9 fLRDW-CV 11.2 (*) 12.0 - 15.5 %PLT 276 166 - 358 10*3/?LMPV 10.7 9.5 - 12.9 fLNRBC/100 WBC 0.0 0.0 - 10.0 /100 WBCsNRBC x10^3 <0.01 10*3/?LGRAN MAT (NEUT) % 69.3 %IMM GRAN % 0.20 %LYMPH % 20.8 %MONO % 7.9 %EOS % 1.3 %BASO % 0.5 %GRAN MAT x10^3(ANC) 7.21 (*) 1.88 - 7.09 10*3/uLIMM GRAN x10^3 <0.03 0.00 - 0.06 10*3/uLLYMPH x10^3 2.17 1.32 - 3.29 10*3/uLMONO x10^3 0.82 0.33 - 0.92 10*3/uLEOS x10^3 0.14 0.03 - 0.39 10*3/uLBASO x10^3 0.05 0.01 - 0.07 10*3/uLCOMP. METABOLIC PANEL (02922) - AbnormalNA 137 135 - 145 mmol/LK 3.3 (*) 3.5 - 5.0 mmol/LCL 103 98 - 108 mmol/LCO2 TOTAL 25 23 - 31 mmol/LAGAP 9 2 - 16BUN 21 7 - 23 mg/dLGLUCOSE 94 70 - 110 mg/dLCREATININE 0.90 0.50 - 1.04 mg/dLTOTAL BILI 1.6 (*) 0.1 - 1.1 mg/dLCALCIUM 9.1 8.6 - 10.6 mg/Brittanie PROTEIN 8.0 6.3 - 8.2 g/dLALBUMIN 4.6 3.5 - 5.0 g/dLALK PHOS 56 34 - 122 U/LALTv 23 5 - 35 U/LAST(SGOT) 34 13 - 40 U/LeGFR 93.5 mL/min/1.34r7COXV TEST - NormalPOCT PREG NegativeOn board controls acceptable with C Line YesPOCT PREG LOT # [id number] PREG TEST DATE 05/21/2024EKG:If EKG completed, see Procedure Note.Orders and Treatments:Orders Placed This EncounterProceduresCBC WITH DIFFCOMP. METABOLIC PANEL (66556)POCT TESTOrders Placed This EncounterMedicationsNaCl 0.9% (NS) bolus infusion 1,000 mLhaloperidol lactate (HALDOL) injection 2.5 mgmetoclopramide HCl (REGLAN) injection 10 mgmetoclopramide HCl 10 mg tabletFirst Provider Eval:ED EventsDate/Time Event User Pukqtkfm27/10/242155 Medical Screening Begins SHERICE FAN DO --07/24/232155 First Provider Evaluation SHERICE FAN DO --ED COURSEDiagnosis/Impression as of 07/24/23 2316Nausea and vomiting, unspecified vomiting typeProcedures:ProceduresMDM:Medic al Decision MakingThe patient presents from home for evaluation for nausea and vomiting for the past 2 weeks. No sick contacts. No bad food exposure. No recent trips or travel or antibiotics. No diarrhea. She admits to marijuana abuse however she did quit several days ago as she believes she has cyclic vomiting syndrome related to marijuana use.Vital signs are stable in the ER.She has dry mucous membranes.Her abdomen is soft and nontender on examination.Will give IV fluids and antiemetics here in the ER.Will check a urine test as well as laboratory studies.Anticipate discharge home later.2315 -the patient is doing well here in the ER.Her nausea and vomiting has resolved with medications given here in the ER.Hyperemesis is negative.Her laboratory studies are unremarkable.She was given a p.o. challenge and able to tolerate by mouth without difficulty.She remained stable here in the ER and is okay for discharge home with PCP follow-up.Problems Addressed:Nausea and vomiting, unspecified vomiting type: acute illness or injuryAmount and/or Complexity of Data ReviewedLabs: ordered. Decision-making details documented in ED Course.RiskOTC drugs.Prescription drug management.Flowsheet Documentation:Scoring Tools:No data recordedDisposition/Condition:ED DispositionED DispositionDisch - HomeConditionStableComment--Discha rge Medications:Patient's MedicationsSTART taking these medicationsMETOCLOPRAMIDE HCL 10 MG TABLET Take 1 tablet by mouth every 6 (six) hours.CONTINUE taking these medications which have NOT CHANGEDNo medications on fileSTART taking Modified Medications as PrescribedNo medications on fileSTOP taking these medicationsNo medications on fileFollow-up:Electronically signed by:Sherice Fan DO07/24/236 71025-1Dhuszytxm Emergency department VwrwOQ3687-76-30C04:16:53Physician Emergency department NoteTXT1.2.840.666867.1.13.104.2.7 .2.822741|[id number] for patient trip50844-9Sxvxqwwyf department NoteLNNARRATIVEFormatted C-CDA narrative textUTMBUT47 Brown [id number] 65FDARIJBZRXPGTOVLJUSTFQ4616-68-80 T23:16:531.2.840.276847.1.72.3.15| 1.2.840.116206.1.13.104.2.7.2.7278 [id number] [facility] 2023-03-02 09:18:05 3125-94-19G50:18:05F ormatting of this note is different from the original.Chief ComplaintPatient presents withVaginal [place] [address]-8Cwalz UsjoKL1690-54-44D36:25:39Nurse NoteTXT1.2.840.218474.1.13.131.2.7 .2.186968|[id number] for patient nchq37927-5Wzopo NoteLNNARRATIVEFormatted C-CDA narrative textThedaCare Regional Medical Center–Neenah2727 [facility].D[id number] IIE7076-34-29U69:25:391.2.840.1143 50.1.72.3.15|1.2.840.476644.1.13.1 31.2.7.2.727879_[id number] [facility]
[2023-07-25] MEDS ORDERED: FAMOTIDINE 20 MG/2 ML VIAL IV ONE (10:31)
[2023-07-25] MEDS ORDERED: NA CHLORIDE 0.9% 1,000 ML ONE (10:31)
[2023-07-25 10:40] LABS: Absolute Basophils 0.1 K/uL (0-0.5); Absolute Lymphocytes (CBC) 1.1 K/uL (0.7-4.9); Absolute Monocytes 0.4 K/uL (0.1-1.3); Absolute Neutrophil 6.9 K/uL (1.8-8.0); Basophils % 0.7 % (0-1.3); Eosinophils % 0.4 % (0-4.4); Hematocrit 39.3 % (36.0-45.0); Hemoglobin 13.7 g/dL (12.0-15.0); Lymphocytes % 12.7 % (15.3-44.8); MCHC 34.9 g/dL (32.0-36.0); MCV 85.9 fL (80-100); MPV 8.6 fL (7.6-11.3); Monocytes % 4.4 % (3.3-12.3); Neutrophils % 81.8 % (41.7-73.7); Platelets 275 thou/uL (152-406); RBC Red Blood Cell Count 4.58 M/uL (3.86-4.86); Red Cell Distribution Width 12.1 % (12.1-15.2)
[2023-07-25 10:58] LABS: Albumin 3.9 g/dL (3.4-5.0); Albumin/Globulin Ratio 1.2 (1.1-1.8); Anion Gap 9.7 mEq/L (5.0-15.0); Bilirubin Total 1.5 mg/dL (0.2-1.0); Globulin 3.2 g/dL (2.3-3.5); Potassium 3.7 mEq/L (3.5-5.1); Protein, Total 7.1 g/dL (6.4-8.2)
--- NOTE | 2023-07-25 11:17 | ER ---
Nurse's Notes [facility] Name: Dede Kulkarni Age: 23 yrs Sex: Female : 2000 Arrival Date: 07/25/2023 Time: 10:08 Bed 18 Private MD: Diagnosis: Cannabinoid hyperemesis syndrome Presentation: 07/24 10:20 Chief complaint: Patient states: States she has CHS for the past month. She stopped ll1 smoking marijuana 4 days ago and her symptoms have worsened. Coronavirus screen: Client denies travel out of the [place] in the last 14 days. diarrhea, fatigue, nausea, vomiting. Client presents with at least one sign or symptom that may indicate coronavirus-19. Standard/surgical mask placed on the client. Ebola Screen: Patient denies travel to an Ebola-affected area in the 21 days before illness onset. Initial Sepsis Screen: Does the patient meet any 2 criteria? No. Patient's initial sepsis screen is negative. Does the patient have a suspected source of infection? No. Patient's initial sepsis screen is negative. Risk Assessment: Do you want to hurt yourself or someone else? Patient reports no desire to harm self or others. Onset of symptoms was June 24, 2023. 10:20 Method Of Arrival: Ambulatory ll1 10:20 Acuity: CASEY 3 ll1 Triage Assessment: 10:22 General: Appears in no apparent distress. Behavior is calm, cooperative, appropriate ll1 for age. Pain: Complains of pain in abdomen Pain currently is 4 out of 10 on a pain scale. Quality of pain is described as aching, crampy. GI: Reports lower abdominal pain, upper abdominal pain, cramping, diarrhea, nausea, vomiting. 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 - Infectious Disease History:: Denies. - Social history:: Smoking status: Patient denies any tobacco usage or history of. Screenin:41 Abuse screen: Denies threats or abuse. Nutritional screening: No deficits noted. ap3 Tuberculosis screening: No symptoms or risk factors identified. 11:32 [facility] ED Fall Risk Assessment (Adult) History of falling in the last 3 months, ap3 including since admission No falls in past 3 months (0 pts) Confusion or Disorientation No (0 pts) Intoxicated or Sedated No (0 pts) Impaired Gait No (0 pts) Mobility Assist Device Used No (0 pt) Altered Elimination No (0 pt) Score/Fall Risk Level 0 - 2 = Low Risk Oriented to surroundings, Maintained a safe environment, Educated pt \T\ family on fall prevention, incl call for assistance when getting out of bed, Assessed \T\ reinforced patient's understanding of fall precautions, Provided non-skid footwear, Hourly rounding (assess needs \T\ fall precautionary measures) done, Used ambulatory aids as needed (educated on \T\ assisted with), Used gait belt as appropriate. Assessment: 11:28 GI: Abdomen is flat, Reports nausea, vomiting. ap3 11:28 General: Appears in no apparent distress. Behavior is calm, cooperative, appropriate ap3 for age. Pain: Denies pain. Neuro: Level of Consciousness is awake, alert, obeys commands, Oriented to person, place, time, situation. Cardiovascular: Patient's skin is warm and dry. Respiratory: Airway is patent Respiratory effort is even, unlabored, Respiratory pattern is regular, symmetrical. Vital Signs: 10:20 BP 118 / 84; Pulse 72; Resp 17; Temp 97.6; Pulse Ox 98% on R/A; Weight 49.9 kg; Height ll1 5 ft. 4 in. ; Pain 4/10; 11:32 BP 118 / 56; Pulse 88; Resp 17; Temp 98.1; Pulse Ox 100% on R/A; ap3 10:20 Body Mass Index 18.88 (49.90 kg, 162.56 cm) ll1 10:20 Pain Scale: Adult ll1 ED Course: 10:10 Patient arrived in ED. mr 10:12 Davie Moreno DO is Attending Physician. ms3 10:12 Arm band placed on Patient placed in an exam room, on a stretcher. ll1 10:18 Veronica Corona, LORETO is Primary Nurse. ap3 10:22 Triage completed. ll1 10:26 Initial lab(s) drawn, by me, sent to lab. Inserted saline lock: 20 gauge in right ap3 antecubital area, using aseptic technique. Blood collected. 10:41 Client placed on continuous cardiac and pulse oximetry monitoring. NIBP monitoring ap3 applied. environmental monitoring specialist on. Pulse ox on. NIBP on. 10:41 Patient has correct armband on for positive identification. Bed in low position. Call ap3 light in reach. Side rails up X 1. Door closed. Noise minimized. 11:16 Antony Kumar DO is Referral Physician. ms3 11:28 No provider procedures requiring assistance completed. ap3 11:32 Provided Education on: medications prior to arrival . ap3 11:35 IV discontinued, intact, bleeding controlled, No redness/swelling at site. ap3 Administered Medications: 10:40 Drug: Droperidol IVP 1.25 mg IVP once Route: IVP; Site: right antecubital; ap3 11:31 Follow up: Response: No adverse reaction; Nausea is decreased ap3 10:41 Drug: NS 0.9% IV 1000 ml IV at 1 bolus Per protocol; 1000 mL bolus Route: IV; Rate: 1 ap3 bolus; Site: right antecubital; 11:31 Follow up: IV Status: Completed infusion; IV Intake: 1000ml ap3 10:41 Drug: Famotidine IVP 20 mg IVP once; dilute with 10 mL 0.9% NaCl; give over 2 minutes ap3 Route: IVP; Site: right antecubital; 11:31 Follow up: Response: No adverse reaction ap3 Medication: 11:31 VIS not applicable for this client. ap3 Intake: 11:31 IV: 1000ml; Total: 1000ml. ap3 Outcome: 11:16 Discharge ordered by . ms3 11:31 Condition: good ap3 11:35 Discharged to home ambulatory, with family, ap3 11:35 Discharge instructions given to patient, Instructed on discharge instructions, follow up and referral plans. medication usage, Demonstrated understanding of instructions, follow-up care, medications, Prescriptions given X 1, 11:35 Patient left the ED. ap3 Signatures: Klaudia Sen, Dexter Reg mr Veronica Corona RN RN ap3 Lisa Cordova RN RN ll1 Moreno, Davie, DO DO ms3
--- NOTE | 2023-07-25 11:17 | EDPHYS ---
Physician Documentation [facility] Name: Dede Kulkarni Age: 23 yrs Sex: Female : 2000 Arrival Date: 07/25/2023 Time: 10:08 Bed 18 Private MD: ED Physician Davie Moreno HPI: 07/24 10:23 This 23 yrs old Female presents to ER via Ambulatory with complaints of Vomiting. ms3 10:23 23-year-old female with past medical history of cannabinoid hyperemesis syndrome ms3 presents to the emergency department for vomiting that has been ongoing for 4 weeks secondary to marijuana use. Patient states she stopped using marijuana 4 days ago and her symptoms have become worse. Patient was seen at [facility] yesterday and she states she has been unable to hold food down since. Patient took metoclopramide 30 minutes prior to arrival and still feels nauseated. Patient states her symptoms are better after a hot shower. Patient denies inciting factors. 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 - Infectious Disease History:: Denies. - Social history:: Smoking status: Patient denies any tobacco usage or history of. ROS: 10:23 Constitutional: Negative for fever, and chills. Neck: Negative for injury, pain, and ms3 swelling, Cardiovascular: Negative for chest pain, and palpitations. Respiratory: Negative for shortness of breath, cough, wheezing, and pleuritic chest pain, 10:23 MS/Extremity: Negative for injury and deformity, Skin: Negative for injury, rash, and discoloration, 10:23 Abdomen/GI: Positive for nausea and vomiting, Exam: 10:23 Constitutional: This is a well developed, well nourished patient who is awake, alert, ms3 and in no acute distress. Head/Face: Normocephalic, atraumatic. Chest/axilla: Normal chest wall appearance and motion. Nontender with no deformity. Cardiovascular: Regular rate and rhythm with a normal S1 and S2. No gallops, murmurs, or rubs. Normal PMI, no JVD. No pulse deficits. Respiratory: Lungs have equal breath sounds bilaterally, clear to auscultation and percussion. No rales, rhonchi or wheezes noted. No increased work of breathing, no retractions or nasal flaring. Abdomen/GI: Soft, non-tender, with normal bowel sounds. No distension or tympany. No guarding or rebound. No evidence of tenderness throughout. Skin: Warm, dry with normal turgor. Normal color with no rashes, no lesions, and no evidence of cellulitis. MS/ Extremity: Pulses equal, no cyanosis. Neurovascular intact. Full, normal range of motion. Vital Signs: 10:20 BP 118 / 84; Pulse 72; Resp 17; Temp 97.6; Pulse Ox 98% on R/A; Weight 49.9 kg; Height ll1 5 ft. 4 in. ; Pain 4/10; 11:32 BP 118 / 56; Pulse 88; Resp 17; Temp 98.1; Pulse Ox 100% on R/A; ap3 10:20 Body Mass Index 18.88 (49.90 kg, 162.56 cm) ll1 10:20 Pain Scale: Adult ll1 MDM: 10:22 Patient medically screened. ms3 10:23 Differential diagnosis: Nonspecific abd pain, gastritis, Cannabinoid hyperemesis ms3 syndrome. 11:16 Data reviewed: vital signs, nurses notes, lab test result(s), and as a result, I will ms3 discharge patient. I considered the following discharge prescriptions or medication management in the emergency department Medications were administered in the Emergency Department. See MAR. Counseling: I had a detailed discussion with the patient and/or guardian regarding the historical points, exam findings, and any diagnostic results supporting the discharge/admit diagnosis, lab results, the need for outpatient follow up, to return to the emergency department if symptoms worsen or persist or if there are any questions or concerns that arise at home. Response to treatment: the patient's symptoms have markedly improved after treatment, and as a result, I will discharge patient. Special discussion: I discussed with the patient/guardian in detail that at this point there is no indication for admission to the hospital. It is understood, however, that if the symptoms persist or worsen the patient needs to return immediately for re-evaluation. ED course: On reevaluation patient symptoms improved, patient is alert and oriented x 4, no apparent distress, nontoxic-appearing, speaking full sentences. Patient to follow-up with her primary care physician in 2 to 3 days. Patient understands and agrees with plan. All questions were answered. Return precautions discussed include vomiting, inability to tolerate p.o., worsening symptoms, or any other concerns. 07/24 10:19 Order name: CBC with Diff; Complete Time: 11: ms3 07/24 10:19 Order name: CMP; Complete Time: 11: ms3 07/24 10:19 Order name: IV Saline Lock; Complete Time: ms3 07/24 10:19 Order name: Labs collected and sent; Complete Time: : ms3 Administered Medications: 10:40 Drug: Droperidol IVP 1.25 mg IVP once Route: IVP; Site: right antecubital; ap3 11:31 Follow up: Response: No adverse reaction; Nausea is decreased ap3 10:41 Drug: NS 0.9% IV 1000 ml IV at 1 bolus Per protocol; 1000 mL bolus Route: IV; Rate: 1 ap3 bolus; Site: right antecubital; 11:31 Follow up: IV Status: Completed infusion; IV Intake: 1000ml ap3 10:41 Drug: Famotidine IVP 20 mg IVP once; dilute with 10 mL 0.9% NaCl; give over 2 minutes ap3 Route: IVP; Site: right antecubital; 11:31 Follow up: Response: No adverse reaction ap3 Disposition Summary: 07/25/23 11:16 Discharge Ordered Notes: Location: Home ms3 Condition: Stable ms3 Diagnosis - Cannabinoid hyperemesis syndrome ms3 Followup: ms3 - With: Antony Kumar, DO - When: 2 - 3 days - Reason: Recheck today's complaints Discharge Instructions: - Discharge Summary Sheet ms3 - Cannabinoid Hyperemesis Syndrome ms3 Forms: - Medication Reconciliation Form ms3 - Antibiotic Education ms3 - Prescription Opioid Use ms3 - Patient Portal Instructions ms3 - Leadership Thank You Letter ms3 Prescriptions: - Zofran 4 mg Oral tablet - take 1 tablet SUBLINGUAL route every 8 hours; 15 tablet; Refills: 0, Product ms3 Selection Permitted Signatures: Dispatcher [employer] Veronica Lockett RN RN ap3 Lisa Cordova RN RN ll1 Davie Moreno, DO ms3
[2023-07-25 12:09] VITALS: BP 118/56; TEMP 98.1; O2SAT 100
== END 2023-07-25 11:35 | disposition home or self-care (01) ==
LOC: ER 10:08
DX: R11.2 Nausea with vomiting, unspecified (principal); F12.90 Cannabis use, unspecified, uncomplicated
CPT/HCPCS: 36415; 80053; 85025; 96361; 96374; 96375; 99285; J7030